=== PATIENT | female | born 1950 | race African-American/Black ===

== ENCOUNTER 2016-12-23 23:25 | Emergency (ER) | payer OTHER ==
[2016-12-23 23:43] VITALS: BMI 33.8
[2016-12-24] MEDS ORDERED: KETOROLAC TROMETHAMINE 60 MG/2 ML VIAL IM ONE (00:31)
[2016-12-24] MEDS ORDERED: CYCLOBENZAPRINE HCL 10 MG TABLET (FP) PO ONE (00:31)
--- NOTE | 2016-12-24 00:31 | PDOC ---
History of Present Illness - General Chief Complaint: Back Pain Stated Complaint: BACK PAIN Time Seen by Provider: 12/23/16 23:44 History Source: Patient - History of Present Illness Initial Comments: 12/24/16 06:54 66-year-old female presents to the emergency department complaining of lower right sided back pain 3 days. Pain is described as 6/10 dull discomfort which radiates to the right groin and down the lateral right leg to her mid lower leg intermittently. The pain is exacerbated on movement and alleviated minimally at rest. Patient states she has a history of sciatica and presenting symptoms are exactly the same. She denies any injuries, heavy lifting, headaches, nausea/ vomiting, fever/chills, chest pain, shortness of breath, abdominal pain, extremity numbness or tingling sensation. Patient states she is able to ambulate with slight pain. Past History - Past Medical History Allergies/Adverse Reactions: Allergies Allergy/AdvReac Type Severity Reaction Status Date / Time NUTS Allergy "FEELS Uncoded 12/24/16 00:34 LIKE GUMS & TONGUE SWELLING" Home Medications: Ambulatory Orders Amlodipine Besylate [Norvasc -] 5 mg PO DAILY 01/18/15 Ascorbate Calcium [Vitamin C] 1,000 mg PO DAILY 01/19/15 Duloxetine HCl [Cymbalta -] 60 mg PO DAILY 01/19/15 Metoprolol Succinate [Toprol XL -] 50 mg PO DAILY #0 tab.sr.24h 01/20/15 Cholecalciferol (Vitamin D3) [Vitamin D3] 2,000 unit PO DAILY 09/17/15 Oxycodone HCl/Acetaminophen [Percocet 5-325 mg Tablet] 1 tab PO Q6H #12 tablet MDD 4 12/24/16 Anemia: Yes (H/O "LONG AGO") Cardiac Disorders: Yes (palpitations) GI Disorders: Yes (SBO,COLON POLYPS) HTN: Yes Liver Disease: No Suicide Attempt (Hx): No - Surgical History Orthopedic Surgery: Yes (BILATERAL KNEE SCOPES) - Immunization History Immunization Up to Date: Yes - Psycho/Social/Smoking Cessation Hx Anxiety: No Suicidal Ideation: No Smoking History: Never smoked Have you smoked in the past 12 months: No Number of Cigarettes Smoked Daily: 0 Information on smoking cessation initiated: No Hx Alcohol Use: No Drug/Substance Use Hx: No Substance Use Type: Alcohol Hx Substance Use Treatment: No Review of Systems - Review of Systems Able to Perform ROS?: Yes Comments:: 12/24/16 06:55 CONSTITUTIONAL: Absent: fever, chills, diaphoresis, generalized weakness, malaise, loss of appetite HEENT: Absent: rhinorrhea, nasal congestion, throat pain, throat swelling, difficulty swallowing, mouth swelling, ear pain, eye pain, visual Changes CARDIOVASCULAR: Absent: chest pain, loss of consciousness, palpitations, irregular heart rate, peripheral edema RESPIRATORY: Absent: cough, shortness of breath, dyspnea with exertion, orthopnea, wheezing, stridor, hemoptysis GASTROINTESTINAL: Absent: abdominal pain, abdominal distension, nausea, vomiting, diarrhea, constipation, melena, hematochezia GENITOURINARY: Absent: dysuria, frequency, urgency, hesitancy, hematuria, flank pain, genital pain MUSCULOSKELETAL: Right lower back pain to right froain/down right llat leg to mid lower leg Absent: myalgia, arthralgia, joint swelling SKIN: Absent: rash, itching, pallor HEMATOLOGIC/IMMUNOLOGIC: Absent: easy bleeding, easy bruising, lymphadenopathy, frequent infections ENDOCRINE: Absent: unexplained weight gain, unexplained weight loss, heat intolerance, cold intolerance NEUROLOGIC: Absent: headache, focal weakness or paresthesias, dizziness, unsteady gait, seizure, mental status changes, bladder or bowel incontinence PSYCHIATRIC: Absent: anxiety, depression, suicidal or homicidal ideation, hallucinations. Is the patient limited Colombian proficient: No *Physical Exam - Vital Signs Last Vital Signs Temp Pulse Resp BP Pulse Ox 97.2 F L 79 20 147/69 97 12/23/16 23:39 12/23/16 23:39 12/23/16 23:39 12/23/16 23:39 12/23/16 23:52 - Physical Exam Comments: 12/24/16 06:55 GENERAL: Well developed, well nourished. Awake and alert. No acute distress. HEENT: Normocephalic, atraumatic. PERRLA, EOMI. No conjunctival pallor. Sclera are non- icteric. Moist mucous membranes. Oropharynx is clear. NECK: Supple. Full ROM. No JVD. Carotid pulses 2+ and symmetric, without bruits. No thyromegaly. No lymphadenopathy. CARDIOVASCULAR: Regular rate and rhythm. No murmurs, rubs, or gallops. Distal pulses are 2+ and symmetric. PULMONARY: No evidence of respiratory distress. Lungs clear to auscultation bilaterally. No wheezing, rales or rhonchi. ABDOMINAL: Soft. Non-tender. Non-distended. No rebound or guarding. No organomegaly. Normoactive bowel sounds. MUSCULOSKELETAL Normal range of motion at all joints. No bony deformities or tenderness. No CVA tenderness. EXTREMITIES: No cyanosis. No clubbing. No edema. No calf tenderness. SKIN: Warm and dry. Normal capillary refill. No rashes. No jaundice. NEUROLOGICAL: Alert, awake, appropriate. Cranial nerves 2-12 intact. No deficits to light touch and temperature in face, upper extremities and lower extremities. No motor deficits in the in face, upper extremities and lower extremities. Normoreflexic in the upper and lower extremities. Normal speech. Toes are down- going bilaterally. Gait is normal without ataxia. PSYCHIATRIC: Cooperative. Good eye contact. Appropriate mood and affect. Patient is able to tandem walk, stand on her toes, heels. Neg SLR ED Treatment Course - RADIOLOGY Radiograph Interpretation: 12/24/16 04:36 The lumbar vertebrae are normally aligned. No fracture or destructive bone lesion. No definite disc herniations that this would better be evaluated with MRI. Mild multilevel posterior element hypertrophy. No definite this herniations. *DC/Admit/Observation/Transfer Diagnosis at time of Disposition: Back pain Qualifiers: Back pain location: low back pain Chronicity: acute Back pain laterality: right Sciatica presence: with sciatica Sciatica laterality: sciatica of right side Qualified Code(s): M54.41 - Lumbago with sciatica, right side Sciatic nerve pain Qualifiers: Laterality: right Qualified Code(s): M54.31 - Sciatica, right side - Discharge Dispostion Disposition: HOME Condition at time of disposition: Stable Admit: No - Prescriptions Prescriptions: Oxycodone HCl/Acetaminophen [Percocet 5-325 mg Tablet] 1 tab PO Q6H #12 tablet MDD 4 - Referrals Referrals: Ledy Liao MD [Primary Care Provider] - Kg Chand MD [Staff Physician] - - Patient Instructions Printed Discharge Instructions: DI for Back Pain With Sciatica Additional Instructions: Tylenol/Motrin as needed for mild pain Percocet only as needed for severe pain Percocet contains Tylenol Follow-up with the neurologist Return back to the emergency department for severe/persistent or worsening symptoms
[2016-12-24] MEDS ORDERED: CYCLOBENZAPRINE HCL 10 MG TABLET (FP) ONE ×2 (00:38→00:39)
[2016-12-24] MEDS ORDERED: KETOROLAC TROMETHAMINE 60 MG/2 ML VIAL ONE (00:38)
[2016-12-24 01:27] LABS: URINE APPEARANCE CLEAR; URINE BILIRUBIN NEGATIVE (NEGATIVE); URINE BLOOD NEGATIVE (NEGATIVE); URINE COLOR YELLOW; URINE GLUCOSE (UA) NEGATIVE (NEGATIVE); URINE KETONE TRACE (NEGATIVE); URINE LEUK ESTERASE NEGATIVE (NEGATIVE); URINE NITRITE NEGATIVE (NEGATIVE); URINE UROBILINOGEN 4.0 E.U/dl E.U./dl (0.2-1.0)
[2016-12-24 01:28] LABS: URINE PROTEIN 1+ (NEGATIVE)
[2016-12-24 01:29] LABS: URINE MUCUS RARE; URINE RBC 4 /hpf (0-3); URINE WBC 1 /hpf (3-5)
[2016-12-24] MEDS ORDERED: OXYCODONE/APAP 5/325MG COMBO TABLET PO ONE (01:47)
[2016-12-24] MEDS ORDERED: OXYCODONE/APAP 5/325MG COMBO TABLET ONE (02:30)
[2016-12-24 05:36] VITALS: BP 140/70; PULSE 76; TEMP 97.5
== END 2016-12-24 05:13 | disposition home or self-care (01) ==
LOC: JER 23:25
PROC: 3E0233Z Introduction of Anti-inflammatory into Muscle, Percutaneous Approach (ICD-10-PCS; principal; 2016-12-23)
DX: M54.41 Lumbago with sciatica, right side (principal); I10 Essential (primary) hypertension
CPT/HCPCS: 72131-TC; 81003; 81015; 96372; 99282-25

== ENCOUNTER 2017-09-18 23:36 | Emergency (ER) | payer OTHER ==
[2017-09-19 00:29] VITALS: BMI 29.2
--- NOTE | 2017-09-19 01:09 | PDOC ---
History of Present Illness <Yvonne Meza - Last Filed: 09/19/17 03:44> - General History Source: Patient Exam Limitations: No Limitations - History of Present Illness Initial Comments: 09/19/17 02:42 Patient is a 67 year old female who presents to the ED with complaints of intense cough that began yesterday afternoon. Patient reports experiencing sudden onset of intense non productive cough that she says has increased in intensity over time. She reports experiencing intermittent chest pain secondary to coughing. Patient reports experiencing general body aches as well as sore throat and chills secondary to cough. She reports taking Mucinex, Aleve , and Claritin with no relief. Patient states having sick contacts in her and Son. Patient reports experiencing urinary incontinence secondary to coughing. Denies nausea, vomiting. Denies change in appetite, constipation, diarrhea. Denies out of state travelling. Denies any other symptoms. PMHx: laminectomy L4 and L5, cataracts, HTN, SBO,Colon Polyps, Anemia Allergies: None Social history: No smoking. Social drinker. No illicit drugs. Surgical history: Bilateral knee scopes. PMD: Dr. Ledy Hill. <Rubén Paz - Last Filed: 09/19/17 03:45> - General Chief Complaint: Cold Symptoms Stated Complaint: COUGHING Time Seen by Provider: 09/19/17 00:36 Past History - Past Medical History Anemia: Yes (H/O "LONG AGO") Cardiac Disorders: Yes (palpitations) GI Disorders: Yes (SBO,COLON POLYPS) HTN: Yes Liver Disease: No - Surgical History Orthopedic Surgery: Yes (BILATERAL KNEE SCOPES) - Immunization History Immunization Up to Date: Yes - Suicide/Smoking/Psychosocial Hx Smoking History: Never smoked Have you smoked in the past 12 months: No Number of Cigarettes Smoked Daily: 0 Information on smoking cessation initiated: No Hx Alcohol Use: No Drug/Substance Use Hx: No Substance Use Type: Alcohol Hx Substance Use Treatment: No <Yvonne Meza - Last Filed: 09/19/17 03:44> <Rubén Paz - Last Filed: 09/19/17 03:45> - Past Medical History Allergies/Adverse Reactions: Allergies Allergy/AdvReac Type Severity Reaction Status Date / Time No Known Drug Allergies Allergy Verified 09/19/17 01:29 NUTS Allergy "FEELS Uncoded 09/19/17 00:29 LIKE GUMS & TONGUE SWELLING" Home Medications: Ambulatory Orders Amlodipine Besylate [Norvasc -] 5 mg PO DAILY 01/18/15 Duloxetine HCl [Cymbalta -] 60 mg PO DAILY 01/19/15 Metoprolol Succinate [Toprol XL -] 50 mg PO DAILY #0 tab.sr.24h 01/20/15 Oseltamivir Phosphate [Tamiflu -] 75 mg PO DAILY #4 capsule 09/19/17 Review of Systems - Review of Systems Able to Perform ROS?: Yes Comments:: 09/19/17 03:45 See HPI. All other systems reviewed and unremarkable <Rubén Paz - Last Filed: 09/19/17 03:45> *Physical Exam - Vital Signs Last Vital Signs Temp Pulse Resp BP Pulse Ox 102.5 F H 94 H 18 160/80 100 09/19/17 00:27 09/19/17 00:27 09/19/17 00:27 09/19/17 00:27 09/19/17 00:27 - Physical Exam Comments: 09/19/17 03:44 NAD, looks as though she feels under the weather EOMI MMM, OP no exudate, no edema mild cervical LAD RRR, no m/r/g CTABL soft ntnd neuro grossly intact A&O x 3. <Yvonne Meza - Last Filed: 09/19/17 03:44> - Vital Signs Last Vital Signs Temp Pulse Resp BP Pulse Ox 102.5 F H 94 H 18 160/80 100 09/19/17 00:27 09/19/17 00:27 09/19/17 00:27 09/19/17 00:27 09/19/17 00:27 <Rubén Paz - Last Filed: 09/19/17 03:45> ED Treatment Course - ADDITIONAL ORDERS Additional order review: 09/19/17 01:30 Influenza Types A,B Antigen (AJ) - Final Nasopharyngeal Swab - Final - Medications Given in the ED: ED Medications Discontinued Medications Generic Name Dose Route Start Last Admin Trade Name Freq PRN Reason Stop Dose Admin Acetaminophen 975 mg 09/19/17 01:14 09/19/17 01:35 Tylenol - PO 09/19/17 01:15 975 mg ONCE ONE Administration Guaifenesin/Codeine Phosphate 10 ml 09/19/17 01:15 09/19/17 01:36 Robitussin Ac - PO 09/19/17 01:16 10 ml ONCE ONE Administration Ketorolac Tromethamine 30 mg 09/19/17 01:14 09/19/17 01:35 Toradol Injection - IM 09/19/17 01:15 30 mg ONCE ONE Administration <Rubén Paz - Last Filed: 09/19/17 03:45> Medical Decision Making - Medical Decision Making 09/19/17 02:08 [id number] presnets w/ CARM[facility]O after + sick contacts in and son with same illness. Fever, cough, headache, myalgias. - sxs control - DC. Lab called, pt Flu A + 09/19/17 03:23 Feeling a little better after symptommatic cotnrol. Started on Tamiflu. Tamiflu Rx to pharmacy. DC. <Yvonne Meza - Last Filed: 09/19/17 03:44> *DC/Admit/Observation/Transfer - Discharge Dispostion Admit: No <Yvonne Meza - Last Filed: 09/19/17 03:44> - Attestations Scribe Attestion: 09/19/17 02:42 Documentation prepared by Rubén Paz, acting as medical records library professor for Yvonne Meza MD, MD/DO. <Rubén Paz - Last Filed: 09/19/17 03:45> Diagnosis at time of Disposition: Influenza A - Discharge Dispostion Disposition: HOME Condition at time of disposition: Stable - Prescriptions Prescriptions: Oseltamivir Phosphate [Tamiflu -] 75 mg PO DAILY #4 capsule - Referrals Referrals: Ledy Liao MD [Primary Care Provider] - - Patient Instructions Additional Instructions: You have tested POSITIVE for FLU A. Treat your symptoms as they arise. Tylenol for fevers ibuprofen for aches and pains robitussin for cough claritin and nasal saline spray for sinus congestion. You may use CEPACOL throat lozenges for sore throat. CEPACOL throat spray for sore throat. Prescriptions have been sent to your designated pharmacy: Tamiflu 1 tab daily for 4days (total 5 days) Drink plenty of fluids -- soup, gatorade, water with eletrolyte powder eat your prescribed diet as possible. get plenty of rest. follow-up with your doctor this week. return to the ER for: severe difficulty breathing fainting. - Post Discharge Activity
[2017-09-19] MEDS ORDERED: KETOROLAC TROMETHAMINE 30 MG/1 ML VIAL IM ONE (01:14)
[2017-09-19] MEDS ORDERED: ACETAMINOPHEN 500 MG TABLET (FP) PO ONE (01:14)
[2017-09-19] MEDS ORDERED: guaiFENesin/CODEINE 10 ML UNIT-DOSE CUPS PO ONE (01:15)
[2017-09-19] MEDS ORDERED: OSELTAMIVIR PHOSPHATE 75 MG CAPSULE PO ONE (02:41)
[2017-09-19] MEDS ORDERED: OSELTAMIVIR PHOSPHATE 75 MG CAPSULE ONE (02:50)
[2017-09-19 04:05] VITALS: BP 131/57; PULSE 81; TEMP 100.1
[2017-09-19] MEDS ORDERED: ACETAMINOPHEN 325 MG TABLET (FP) PO ONE (04:05)
[2017-09-19] MEDS ORDERED: ACETAMINOPHEN 325 MG TABLET (FP) ONE (04:10)
== END 2017-09-19 04:40 | disposition home or self-care (01) ==
LOC: JER 23:36
PROC: 3E0233Z Introduction of Anti-inflammatory into Muscle, Percutaneous Approach (ICD-10-PCS; principal; 2017-09-18)
DX: J09.X2 Influenza due to identified novel influenza A virus with other respiratory manifestations (principal)
CPT/HCPCS: 71046-TC; 87804; 96372; 99281-25

== ENCOUNTER 2018-05-02 00:33 | Emergency (ER) | payer OTHER ==
--- NOTE | 2018-05-02 00:51 | PDOC ---
History of Present Illness - History of Present Illness Initial Comments: 05/02/18 01:29 The patient is a 68 year old female, with a significant past medical history of HTN, who presents to the emergency department with, intermittent palpitations. As per patient, her symptoms have been intermittent for the past 4 days becoming progressively more constant prompting her visit to the ED today. Today she reports 5 episodes today with heart rate of 162 bpm. She reports her palpitations to initially onset with a headache. The patient also endorses minimal chest pain. She denies recent fevers, chills, or dizziness. She denies recent nausea, vomit , diarrhea or constipation. She denies recent dysuria, frequency, urgency or hematuria. She denies recent shortness of breath. PMHx: laminectomy L4 and L5, cataracts, HTN, SBO,Colon Polyps, Anemia Allergies: Nuts Social history: No smoking. Social drinker. No illicit drugs. Surgical history: Bilateral knee scopes. PMD: Dr. Ledy Hill. <Madison Laguerre - Last Filed: 05/02/18 01:29> - General History Source: Patient Exam Limitations: No Limitations <Eunice Rose - Last Filed: 05/03/18 00:29> - General Stated Complaint: PALPATATIONS Time Seen by Provider: 05/02/18 00:42 Past History <Madison Laguerre - Last Filed: 05/02/18 01:29> - Past Medical History Anemia: Yes (H/O "LONG AGO") Cardiac Disorders: Yes (palpitations) GI Disorders: Yes (SBO,COLON POLYPS) HTN: Yes Liver Disease: No - Surgical History Orthopedic Surgery: Yes (BILATERAL KNEE SCOPES) - Immunization History Immunization Up to Date: Yes - Suicide/Smoking/Psychosocial Hx Smoking History: Never smoked Have you smoked in the past 12 months: No Number of Cigarettes Smoked Daily: 0 Information on smoking cessation initiated: No Hx Alcohol Use: No Drug/Substance Use Hx: No Substance Use Type: Alcohol Hx Substance Use Treatment: No <Eunice Rose - Last Filed: 05/03/18 00:29> - Past Medical History Allergies/Adverse Reactions: Allergies Allergy/AdvReac Type Severity Reaction Status Date / Time No Known Drug Allergies Allergy Verified 05/02/18 00:43 NUTS Allergy "FEELS Uncoded 05/02/18 00:43 LIKE GUMS & TONGUE SWELLING" Home Medications: Ambulatory Orders Amlodipine Besylate [Norvasc -] 5 mg PO DAILY 01/18/15 Duloxetine HCl [Cymbalta -] 60 mg PO DAILY 01/19/15 Metoprolol Succinate [Toprol XL -] 50 mg PO DAILY #0 tab.sr.24h 01/20/15 Oseltamivir Phosphate [Tamiflu -] 75 mg PO DAILY #4 capsule 09/19/17 Review of Systems - Review of Systems Able to Perform ROS?: Yes Comments:: 05/02/18 01:29 CONSTITUTIONAL: No fever, no chills, no fatigue EYES: No visual changes ENT: No ear pain, no sore throat CARDIOVASCULAR: Palpitations. Chest pain. RESPIRATORY: No cough, no SOB GI: No abdominal pain, no nausea, no vomiting, no constipation, no diarrhea GENITOURINARY: No dysuria, no frequency, no hematuria MUSCULOSKELETAL: No back pain, no joint pain, no myalgias SKIN: No rash NEURO: No headache All Other Systems: Reviewed and Negative <Madison Laguerre - Last Filed: 05/02/18 01:29> *Physical Exam - Vital Signs Last Vital Signs Temp Pulse Resp BP Pulse Ox 97.6 F 83 18 142/80 98 05/02/18 00:44 05/02/18 00:44 05/02/18 00:44 05/02/18 00:44 05/02/18 00:44 - Physical Exam Comments: 05/02/18 01:29 GENERAL: The patient is in no acute distress. HEAD: Normal with no signs of trauma. EYES: PERRLA, EOMI, sclera anicteric, conjunctiva clear. ENT: Ears normal, nares patent, oropharynx clear without exudates. Moist mucous membranes. NECK: Normal range of motion, supple without lymphadenopathy, JVD, or masses. LUNGS: Breath sounds equal, clear to auscultation bilaterally. No wheezes, and no crackles. HEART:Regular rate and rhythm, normal S1 and S2 without murmur, rub or gallop. ABDOMEN: Soft, nontender, normoactive bowel sounds. No guarding, no rebound. No masses palpable. EXTREMITIES: Normal range of motion, no edema. No clubbing or cyanosis. No erythema, or tenderness. NEUROLOGICAL: Cranial nerves II through XII grossly intact. Normal speech. No focal neurological deficits. MUSCULOSKELETAL: Back non-tender to palpation, no CVA tenderness SKIN: Warm, Dry, normal turgor, no rashes or lesions noted. <Madison Laguerre - Last Filed: 05/02/18 01:29> - Vital Signs Last Vital Signs Temp Pulse Resp BP Pulse Ox 97.6 F 83 18 142/80 98 05/02/18 00:44 05/02/18 00:44 05/02/18 00:44 05/02/18 00:44 05/02/18 00:44 <Eunice Rose - Last Filed: 05/03/18 00:29> ED Treatment Course - LABORATORY CBC & Chemistry Diagram: 05/02/18 01:16 05/02/18 01:16 <Madison Laguerre - Last Filed: 05/02/18 01:29> - LABORATORY CBC & Chemistry Diagram: 05/02/18 01:16 05/02/18 01:16 <Eunice Rose - Last Filed: 05/03/18 00:29> Medical Decision Making - Medical Decision Making Miss Guzman presents emergency department with a complaint of palpitations. Her symptoms have been intermittent, lasting minutes and then self resolving. She notes no exacerbating or alleviating factors. She came in tonight because she had multiple episodes of palpitations this evening. Heart rate this evening went up to 162 bpm. She states when her heart rate is elevated she has some chest discomfort No shortness of breath. She denies exertional symptoms, is able to carry out her normal activities at her baseline, no limitations in walking up hills or stairs. Patient denies recent travel, lower extremity edema. No known thyroid disorder. Differential diagnosis includes but is not limited to: ACS, arrhythmia, hyperthyroidism, PE, electrolyte abnormality Will do: Basic labs, EKG, cardiac monitoring Will reassess 05/02/18 03:02 Laboratory Tests 05/02/18 05/02/18 01:16 01:16 WBC 6.7 Hgb 12.7 Hct 38.3 Plt Count 256 D Neutrophils % 39.5 L Lymphocytes % 46.8 H D Sodium 146 H Potassium 3.7 Chloride 111 H Carbon Dioxide 28 BUN 13 Creatinine 0.8 Random Glucose 87 Creatine Kinase 109 Troponin I < 0.02 TSH 0.84 Laboratory Tests 05/02/18 01:16 D-Dimer 348 EKG: NSR rate of 71 bpm, axis nml, intervals nml, no st elevation or depression Pt is not interested in staying in the hospital She would like to leave now because she has an interview scheduled at 11am today We had a long conversation about the things that could possibly be causing her symptoms and my concern for missed arrhythmia I would like to hold her for repeat troponin and conversation with her PMD for follow up Pt can not stay in the ER She will contact the office for follow up Clinical Impression: palpitations, initial presentation 05/02/18 03:06 <Eunice Rose - Last Filed: 05/03/18 00:29> *DC/Admit/Observation/Transfer - Attestations Scribe Attestion: 05/02/18 01:30 Documentation prepared by Madison Laguerre, acting as medical hospital sales for Eunice oRse MD. <Madison Laguerre - Last Filed: 05/02/18 01:29> - Discharge Dispostion Decision to Admit order: No <Eunice Rose - Last Filed: 05/03/18 00:29> Diagnosis at time of Disposition: Palpitations - Discharge Dispostion Disposition: HOME Condition at time of disposition: Stable - Referrals Referrals: Ledy Liao MD [Primary Care Provider] - - Patient Instructions Printed Discharge Instructions: DI for Arrhythmias, DI for Palpitations Additional Instructions: Thomas Thank you for coming in to the ER today Please be sure to follow up with your primary care physician, call in the morning Return to the ER for any other concerns or complaint - Post Discharge Activity
[2018-05-02 01:17] VITALS: BP 142/80; PULSE 83; TEMP 97.6; BMI 29.2
[2018-05-02 01:27] LABS: BASO % 1.5 % (0-2.0); EOS % 4.3 % (0-4.5); HEMATOCRIT 38.3 % (32.4-45.2); HEMOGLOBIN 12.7 GM/dL (10.7-15.3); LYMPH % 46.8 % (8-40); MCH 31.2 pg (25.7-33.7); MCHC 33.2 g/dl (32.0-36.0); MEAN CELL VOLUME 93.9 fl (80-96); MEAN PLT VOLUME 8.2 fl (7.5-11.1); MONO % 7.9 % (3.8-10.2); NEUT % 39.5 % (42.8-82.8); PLATELET COUNT 256 K/MM3 (134-434); RBC 4.08 M/mm3 (3.60-5.2); RDW 14.3 % (11.6-15.6); WHITE BLOOD COUNT 6.7 K/mm3 (4.0-10.0)
[2018-05-02 01:48] LABS: ALBUMIN 3.5 g/dl (3.4-5.0); ANION GAP 7 MMOL/L (8-16); BILIRUBIN,TOTAL 0.2 mg/dL (0.2-1.0); BLOOD UREA NITROGEN 13 mg/dL (7-18); CHLORIDE 111 mmol/L (98-107); CO2 28 mmol/L (21-32); CREATININE 0.8 mg/dL (0.55-1.02); GLUCOSE,RANDOM 87 mg/dL (74-106); POTASSIUM 3.7 mmol/L (3.5-5.1); SGOT/AST 16 U/L (15-37); SGPT/ALT 26 U/L (12-78); SODIUM 146 mmol/L (136-145); TOT PROT 6.9 g/dl (6.4-8.2)
[2018-05-02 01:57] LABS: ALK PHOS 71 U/L (45-117)
--- NOTE | 2018-05-02 11:48 | EKG ---
Test Reason : Blood Pressure : / mmHG Vent. Rate : 071 BPM Atrial Rate : 071 BPM P-R Int : 180 ms QRS Dur : 090 ms QT Int : 394 ms P-R-T Axes : 041 078 024 degrees QTc Int : 428 ms NORMAL SINUS RHYTHM NORMAL ECG WHEN COMPARED WITH ECG OF 20-JUL-2016 01:45, NO SIGNIFICANT CHANGE WAS FOUND Confirmed by GUS LANDA MD ([id number]) on 05/02/2018 11:48:03 AM Referred By: Confirmed By:GUS LANDA MD
== END 2018-05-02 04:00 | disposition home or self-care (01) ==
LOC: JER 00:33
DX: R00.2 Palpitations (principal); I10 Essential (primary) hypertension
CPT/HCPCS: 36415; 71045-TC-FY; 80053; 82550; 84443; 84484; 85025; 85379; 93005; 93010; 99282-25

== ENCOUNTER 2018-06-07 21:24 | Emergency (ER) | payer OTHER ==
[2018-06-07 21:36] VITALS: BP 143/68; PULSE 70; TEMP 98; BMI 29.2
--- NOTE | 2018-06-07 21:38 | PDOC ---
Rapid Medical Evaluation Time Seen by Provider: 06/07/18 21:35 Medical Evaluation: Allergies Allergy/AdvReac Type Severity Reaction Status Date / Time No Known Drug Allergies Allergy Verified 05/02/18 00:43 NUTS Allergy "FEELS Uncoded 05/02/18 00:43 LIKE GUMS & TONGUE SWELLING" 06/07/18 21:35 Pt presents with R hip pain radiating down the R leg. Also with R sided back pain radiating to the L. Hx of sciatica. Denies saddle anesthesia and bladder/ bowel incontinence. Exam: Walking with limp. no gross neuro deficits Orders: Nothing Pt to proceed to ED for further evaluation Discharge Disposition - Diagnosis Back pain - Referrals - Patient Instructions - Post Discharge Activity
[2018-06-08] MEDS ORDERED: KETOROLAC TROMETHAMINE 60 MG/2 ML VIAL IM ONE (02:21)
--- NOTE | 2018-06-08 02:23 | PDOC ---
History of Present Illness - General Chief Complaint: Pain Stated Complaint: RIGHT LEG PAIN Time Seen by Provider: 06/07/18 21:35 - History of Present Illness Initial Comments: 06/08/18 02:22 CHIEF COMPLAINT: low back pain HISTORY OF PRESENT ILLNESS: 68 yo F with hx of laminectomy at L4/L5, HTN, SBO, and anemia presents to ED with R sided back pain radiating to leg. Patient states she has had this pain before and it is about the same as her usual flare- ups. No recent travel or sick contacts. PAST MEDICAL HISTORY: laminectomy L4 and L5, cataracts, HTN, SBO,Colon Polyps, Anemia FAMILY HISTORY: Denies SOCIAL HISTORY: Denies tobacco, alcohol, illicit drug use. SURGICAL HISTORY: Denies ALLERGIES: nuts REVIEW OF SYSTEMS General/Constitutional: Denies fever or chills. Denies weakness, weight change. HEENT: Denies change in vision. Denies ear pain or discharge. Denies sore throat. Cardiovascular: Denies chest pain or shortness of breath. Respiratory: Denies cough, wheezing, or hemoptysis. Gastrointestinal: Denies nausea, vomiting, diarrhea or constipation. Denies rectal bleeding. Genitourinary: Denies dysuria, frequency, or change in urination. Musculoskeletal: R lower back pain radiating to R leg. Denies joint or muscle swelling or pain. Denies neck or back pain. Skin and breasts: Denies rash or easy bruising. Neurologic: Denies headache, vertigo, loss of consciousness, or loss of sensation. PHYSICAL EXAM General Appearance: Well-appearing, appropriately dressed. No apparent distress , no intoxication. HEENT: EOMI, PERRLA, normal ENT inspection, normal voice, TMs normal, pharynx normal. No conjunctival pallor. No photophobia, scleral icterus. Neck: Supple. Trachea midline. No tenderness, rigidity, carotid bruit, stridor , lymphadenopathy, or thyromegaly. Respiratory/Chest: Lungs CTAB. No shortness of breath, chest tenderness, respiratory distress, accessory muscle use. No crackles, rales, rhonchi, stridor , wheezing, dullness Cardiovascular: RRR. S1, S2. No JVD, murmur, bradycardia, tachycardia. Vascular Pulses: Dorsalis-Pedis (R): 2+, Dorsalis-Pedis (L): 2+ Gastrointestinal/Abdominal: Normal bowel sounds. Abdomen soft, non-distended. No tenderness or rebound tenderness. No organomegaly, pulsatile mass, guarding , hernia, hepatomegaly, splenomegaly. Musculoskeletal/Extremities: +straight leg test to R leg. TTP to R paravertebral muscles at L3-L5. Normal inspection. FROM of all extremities, normal capillary refill. Pelvis Stable. No CVA tenderness. No tenderness to extremities, pedal edema, swelling, erythema or deformity. Integumentary: Appropriate color, dry, warm. 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 Fully oriented, alert. Appropriate mood/affect. Motor strength 5/5. No appreciable EOM palsy, facial droop or sensory deficit. Past History - Past Medical History Allergies/Adverse Reactions: Allergies Allergy/AdvReac Type Severity Reaction Status Date / Time No Known Drug Allergies Allergy Verified 06/07/18 21:36 NUTS Allergy "FEELS Uncoded 06/07/18 21:36 LIKE GUMS & TONGUE SWELLING" Home Medications: Ambulatory Orders Amlodipine Besylate [Norvasc -] 5 mg PO DAILY 01/18/15 Duloxetine HCl [Cymbalta -] 60 mg PO DAILY 01/19/15 Metoprolol Succinate [Toprol XL -] 50 mg PO DAILY #0 tab.sr.24h 01/20/15 Diazepam [Valium] 5 mg PO HS #10 tablet MDD 1 06/08/18 Diclofenac Sodium 50 mg PO BID #20 tablet. 06/08/18 Anemia: Yes (H/O "LONG AGO") Cardiac Disorders: Yes (palpitations) COPD: No GI Disorders: Yes (SBO,COLON POLYPS) HTN: Yes Liver Disease: No - Surgical History Orthopedic Surgery: Yes (BILATERAL KNEE SCOPES) - Immunization History Immunization Up to Date: Yes - Suicide/Smoking/Psychosocial Hx Smoking History: Never smoked Have you smoked in the past 12 months: No Number of Cigarettes Smoked Daily: 0 Hx Alcohol Use: No Drug/Substance Use Hx: No Substance Use Type: Alcohol Hx Substance Use Treatment: No *Physical Exam - Vital Signs Last Vital Signs Temp Pulse Resp BP Pulse Ox 98 F 70 18 143/68 100 06/07/18 21:32 06/07/18 21:32 06/07/18 21:32 06/07/18 21:32 06/07/18 21:32 Medical Decision Making - Medical Decision Making 06/08/18 02:26 68 yo F with hx of laminectomy at L4/L5, HTN, SBO, and anemia presents to ED with R sided back pain radiating to leg. -Toradol IM -Valium po 06/08/18 03:41 Patient reevaluated, at this time she states the pain is better and she is ready to go home. Advised patient to take medication as prescribed and follow up with orthopedics within the next week. Advised patient of signs and symptoms for return to ED. Patient verbalized understanding and agrees to plan. *DC/Admit/Observation/Transfer Diagnosis at time of Disposition: Back pain, Sciatic nerve pain - Discharge Dispostion Disposition: HOME Condition at time of disposition: Stable Decision to Admit order: No - Prescriptions Prescriptions: Diazepam [Valium] 5 mg PO HS #10 tablet MDD 1 Diclofenac Sodium 50 mg PO BID #20 tablet.dr - Referrals Referrals: Ledy Liao MD [Primary Care Provider] - Kg Duncan MD [Staff Physician] - - Patient Instructions Printed Discharge Instructions: DI for Back Pain With Sciatica Additional Instructions: Please take medications as prescribed; do NOT drive, drink alcohol, or operate machinery while taking Valium. Please follow up with orthopedics within the next week for further evaluation of your back pain. If you develop any loss of bowel or bladder function, loss of sensation to your legs, or are unable to walk, please return to the ER immediately. - Post Discharge Activity Forms/Work/School Notes: Back to Work
[2018-06-08] MEDS ORDERED: KETOROLAC TROMETHAMINE 60 MG/2 ML VIAL ONE (02:30)
[2018-06-08] MEDS ORDERED: diazePAM 5 MG TABLET PO ONE (02:35)
[2018-06-08] MEDS ORDERED: diazePAM 5 MG TABLET ONE (02:44)
== END 2018-06-08 03:59 | disposition home or self-care (01) ==
LOC: JER 21:24
PROC: 3E0233Z Introduction of Anti-inflammatory into Muscle, Percutaneous Approach (ICD-10-PCS; principal; 2018-06-07)
DX: M54.41 Lumbago with sciatica, right side (principal); I10 Essential (primary) hypertension; Z86.2 Personal history of diseases of the blood and blood-forming organs and certain disorders involving the immune mechanism; Z87.19 Personal history of other diseases of the digestive system
CPT/HCPCS: 99282-25

== ENCOUNTER 2018-06-19 08:23 | Day surgery (SDC) | payer OTHER ==
[2018-06-18 09:21] VITALS: BMI 29.9
[2018-06-19 10:08] VITALS: TEMP 97.6
[2018-06-19 12:04] VITALS: BP 148/85; PULSE 63
--- NOTE | 2018-06-21 17:21 | PATH ---
Surgical Pathology Report Patient Name: ISHA THAKKAR [facility]. Rec. #: [id number] /Age/Gender: 1950 (Age: 68) / F Account: [id number] Location: U-ENDOSCOPY Taken: 06/19/2018 Received: 06/19/2018 Reported: 06/21/2018 Physicians: Neel Ocampo D.O. Specimen(s) Received A: POLYP SIGMOID B: POLYP RECTO SIGMOID Clinical History Occult blood in stool, history of colon polyp Postoperative diagnosis: Polyps, hemorrhoids Final Diagnosis A. SIGMOID COLON, POLYPS, BIOPSY: HYPERPLASTIC POLYP(S). B. RECTOSIGMOID COLON, POLYP, BIOPSY: HYPERPLASTIC POLYP. Electronically Signed Wendy Shepherd M.D. Gross Description A. Received in formalin, labeled "biopsy sigmoid polyps" are 4 healy, irregular portions of soft tissue ranging from 0.2-0.4 cm. in greatest dimension. The specimens are submitted in toto in one cassette. B. Received in formalin, labeled "biopsy rectosigmoid polyp" is a healy, irregular portion of soft tissue measuring 0.3 cm. in greatest dimension. The specimen is submitted in toto in one cassette. [id number]
== END 2018-06-19 11:20 | disposition home or self-care (01) ==
LOC: JASU-ENDO 08:23
PROVIDERS: ATTEND Internal Medicine Gastroenterology
PROC: 0DBN8ZX Excision of Sigmoid Colon, Via Natural or Artificial Opening Endoscopic, Diagnostic (ICD-10-PCS; principal; 2018-06-19 13:00)
DX: K92.1 Melena (principal); D12.7 Benign neoplasm of rectosigmoid junction; K64.8 Other hemorrhoids

== ENCOUNTER 2018-09-25 19:51 | Observation (INO) | payer OTHER ==
[2018-09-25] MEDS ORDERED: ASPIRIN 325 MG TABLET PO ONE (20:04)
--- NOTE | 2018-09-25 20:05 | PDOC ---
Rapid Medical Evaluation Time Seen by Provider: 09/25/18 20:02 Medical Evaluation: Allergies Allergy/AdvReac Type Severity Reaction Status Date / Time No Known Drug Allergies Allergy Verified 06/07/18 21:36 NUTS Allergy "FEELS Uncoded 06/07/18 21:36 LIKE GUMS & TONGUE SWELLING" 09/25/18 20:02 Pt presents to the ED for chest pressure over the past few days. States that she feels an elephant sitting on her chest Exam: NAD, RRR, S1,S2 present. No murmur Orders: Labs, EKG, Cardiac Monitoring,IV Pt to proceed to ED for further evaluation Discharge Disposition - Diagnosis Chest pain - Referrals - Patient Instructions - Post Discharge Activity
[2018-09-25] MEDS ORDERED: ASPIRIN 325 MG TABLET ONE (20:50)
[2018-09-25 21:24] LABS: BASO % 1.2 % (0-2.0); EOS % 4.9 % (0-4.5); HEMATOCRIT 39.8 % (32.4-45.2); HEMOGLOBIN 13.7 GM/dL (10.7-15.3); LYMPH % 41.9 % (8-40); MCH 32.9 pg (25.7-33.7); MCHC 34.5 g/dl (32.0-36.0); MEAN CELL VOLUME 95.3 fl (80-96); MEAN PLT VOLUME 10.4 fl (7.5-11.1); MONO % 10.3 % (3.8-10.2); NEUT % 41.7 % (42.8-82.8); PLATELET COUNT 250 K/MM3 (134-434); RBC 4.18 M/mm3 (3.60-5.2); RDW 14.9 % (11.6-15.6); WHITE BLOOD COUNT 7.3 K/mm3 (4.0-10.0)
[2018-09-25 21:26] LABS: URINE APPEARANCE CLEAR; URINE BILIRUBIN NEGATIVE (<2.0 mg/dL); URINE COLOR YELLOW; URINE GLUCOSE (UA) NEGATIVE (NEGATIVE); URINE KETONE NEGATIVE (NEGATIVE); URINE LEUK ESTERASE NEGATIVE (NEGATIVE); URINE NITRITE NEGATIVE (NEGATIVE); URINE PROTEIN NEGATIVE (NEGATIVE); URINE UROBILINOGEN 4.0 E.U/dl mg/dL (0.2-1.0)
[2018-09-25 21:36] LABS: INR 0.89 (0.83-1.09); PROTHROMBIN TIME (PATIENT) 10.5 SEC (9.7-13.0)
--- NOTE | 2018-09-25 22:38 | PDOC ---
History of Present Illness - General History Source: Patient Exam Limitations: No Limitations - History of Present Illness Initial Comments: 09/25/18 23:15 The patient is a 68 year old female, with a significant past medical history of cataracts, HTN, SBO,Colon Polyps, Anemia, who presents to the emergency department with, a couple of days of intermittent chest pain and palpitations. She notes her symptoms normally onset initially while at rest with palpitations occasionally and with associated headache and worsens with movement. She denies recent fevers, chills, or dizziness. She denies recent nausea, vomit , diarrhea or constipation. She denies recent dysuria, frequency, urgency or hematuria. Allergies: Nuts Past surgical history:Bilateral knee scopes. laminectomy L4 and L5. Social history: No smoking. Social drinker. No illicit drugs. Primary Care Physician: Dr. Ledy Hill. <Madison Laguerre - Last Filed: 09/26/18 02:15> <Lissy Joyce - Last Filed: 09/26/18 02:43> - General Chief Complaint: Chest Pain Stated Complaint: CHESTPAIN Time Seen by Provider: 09/25/18 20:02 Past History <Madison Laguerre - Last Filed: 09/26/18 02:15> - Past Medical History Anemia: Yes (H/O "LONG AGO") Cardiac Disorders: Yes (TACHYCARDIA) COPD: No GI Disorders: Yes (SBO,COLON POLYPS) HTN: Yes Liver Disease: No - Surgical History Orthopedic Surgery: Yes (BILATERAL KNEE SURGERY,RIGHT ROTATOR CUFF REPAIR) - Immunization History Immunization Up to Date: Yes - Suicide/Smoking/Psychosocial Hx Smoking History: Never smoked Have you smoked in the past 12 months: No Number of Cigarettes Smoked Daily: 0 Hx Alcohol Use: Yes (social) Drug/Substance Use Hx: No Substance Use Type: Alcohol Hx Substance Use Treatment: No <Lissy Joyce - Last Filed: 09/26/18 02:43> - Past Medical History Allergies/Adverse Reactions: Allergies Allergy/AdvReac Type Severity Reaction Status Date / Time No Known Drug Allergies Allergy Verified 06/07/18 21:36 NUTS Allergy "FEELS Uncoded 06/07/18 21:36 LIKE GUMS & TONGUE SWELLING" Home Medications: Ambulatory Orders Amlodipine Besylate [Norvasc -] 5 mg PO DAILY 01/18/15 Duloxetine HCl [Cymbalta -] 60 mg PO DAILY 01/19/15 Metoprolol Succinate [Toprol XL -] 50 mg PO DAILY #0 tab.sr.24h 01/20/15 Ascorbic Acid [Vitamin C -] 1,000 mg PO DAILY 06/18/18 Cholecalciferol (Vitamin D3) [Vitamin D3] 2,000 unit PO DAILY 06/18/18 Estradiol 1 mg PO DAILY 06/18/18 Multivitamin with Iron [Multivitamins with Iron] 1 each PO DAILY 06/18/18 Review of Systems - Review of Systems Able to Perform ROS?: Yes Comments:: 09/25/18 23:15 GENERAL/CONSTITUTIONAL: No fever or chills. No weakness. HEAD, EYES, EARS, NOSE AND THROAT: No change in vision. No ear pain or discharge. No sore throat. GASTROINTESTINAL: No nausea, vomiting, diarrhea or constipation. GENITOURINARY: No dysuria, frequency, or change in urination. +CARDIOVASCULAR: Chest pain. Palpitations. No shortness of breath. RESPIRATORY: No cough, wheezing, or hemoptysis. MUSCULOSKELETAL: No joint or muscle swelling or pain. No neck or back pain. SKIN: No rash +NEUROLOGIC: Headache. No vertigo, loss of consciousness, or change in strength/ sensation. ENDOCRINE: No increased thirst. No abnormal weight change. HEMATOLOGIC/LYMPHATIC: No anemia, easy bleeding, or history of blood clots. ALLERGIC/IMMUNOLOGIC: No hives or skin allergy. All Other Systems: Reviewed and Negative <Madison Laguerre - Last Filed: 09/26/18 02:15> *Physical Exam - Vital Signs Last Vital Signs Temp Pulse Resp BP Pulse Ox 97.8 F 64 20 159/57 L 96 09/25/18 20:04 09/25/18 20:04 09/25/18 20:04 09/25/18 20:04 09/25/18 20:04 - Physical Exam Comments: 09/25/18 23:16 GENERAL: Awake, in no acute distress HEAD: No signs of trauma EYES: PERRLA, EOMI, sclera anicteric, conjunctiva clear, visual acuity grossly intact ENT: Moist mucosa NECK: Normal ROM, supple, no lymphadenopathy or JVD. LUNGS: Breath sounds equal, clear to auscultation bilaterally. No wheezes, and no crackles. Normal work of breathing. HEART: Regular rate and rhythm, normal S1 and S2, no murmurs, rubs or gallops ABDOMEN: Soft, nontender, normoactive bowel sounds. No guarding. Non- distended. : CHEST WALL: BACK: No midline tenderness. EXTREMITIES: Normal range of motion, no edema. No clubbing or cyanosis. No erythema, or tenderness NEUROLOGICAL: Alert, and fully oriented x4, Cranial nerves II through XII grossly intact. Normal speech, normal gait. DTRs 2/4 bilaterally. SKIN: Warm, Dry, normal turgor, no rashes or lesions noted. <Madison Laguerre - Last Filed: 09/26/18 02:15> - Vital Signs Last Vital Signs Temp Pulse Resp BP Pulse Ox 97.8 F 64 20 159/57 L 96 09/25/18 20:04 09/25/18 20:04 09/25/18 20:04 09/25/18 20:04 09/25/18 20:04 <Lissy Joyce - Last Filed: 09/26/18 02:43> Moderate Sedation - Procedure Monitoring Vital Signs: Procedure Monitoring Vital Signs Temperature 97.8 F 09/25/18 20:04 Pulse Rate 64 09/25/18 20:04 Respiratory Rate 20 09/25/18 20:04 Blood Pressure 159/57 L 09/25/18 20:04 O2 Sat by Pulse Oximetry (%) 96 09/25/18 20:04 <Madison Laguerre - Last Filed: 09/26/18 02:15> - Procedure Monitoring Vital Signs: Procedure Monitoring Vital Signs Temperature 97.8 F 09/25/18 20:04 Pulse Rate 64 09/25/18 20:04 Respiratory Rate 20 09/25/18 20:04 Blood Pressure 159/57 L 09/25/18 20:04 O2 Sat by Pulse Oximetry (%) 96 09/25/18 20:04 <Lissy Joyce - Last Filed: 09/26/18 02:43> Heart Score/ECG Review - History History: Moderately suspicious - Age Age: >/= 65 - Risk Factors Risk Factors Heart Score: Yes Hx Hypercholesterolemia, Yes Hx Hypertension, Yes Hx Obesity - ECG Intrepretation Rhythm: Regular Rhythm - [place] Comment: 09/26/18 01:40 Q waves present in leads V1 and V2 are unchanged from previous <Lissy Joyce Jane - Last Filed: 09/26/18 02:43> ED Treatment Course - LABORATORY CBC & Chemistry Diagram: 09/25/18 20:58 09/26/18 00:29 - ADDITIONAL ORDERS Additional order review: Laboratory Results 09/25/18 09/25/18 09/25/18 21:00 20:58 20:58 PT with INR 10.50 INR 0.89 Sodium Cancelled Potassium Cancelled Chloride Cancelled Carbon Dioxide Cancelled Anion Gap Cancelled BUN Cancelled Creatinine Cancelled Creat Clearance w eGFR Cancelled Random Glucose Cancelled Calcium Cancelled Magnesium Cancelled Total Bilirubin Cancelled AST Cancelled ALT Cancelled Alkaline Phosphatase Cancelled Creatine Kinase Cancelled Troponin I Cancelled Total Protein Cancelled Albumin Cancelled Urine Color Yellow Urine Appearance Clear Urine pH 6.0 Ur Specific [place] 1.019 Urine Protein Negative Urine Glucose (UA) Negative Urine Ketones Negative Urine Blood Negative Urine Nitrite Negative Urine Bilirubin Negative Urine Urobilinogen 4.0 e.u/dl H Ur Leukocyte Esterase Negative 09/25/18 20:58 RBC 4.18 MCV 95.3 MCHC 34.5 RDW 14.9 MPV 10.4 D Neutrophils % 41.7 L Lymphocytes % 41.9 H Monocytes % 10.3 H Eosinophils % 4.9 H Basophils % 1.2 - Medications Given in the ED: ED Medications Discontinued Medications Generic Name Dose Route Start Last Admin Trade Name Wilfredoq PRN Reason Stop Dose Admin Aspirin 325 mg 09/25/18 20:04 09/25/18 20:52 Asa - PO 09/25/18 20:05 325 mg ONCE ONE Administration <Madison Laguerre - Last Filed: 09/26/18 02:15> - LABORATORY CBC & Chemistry Diagram: 09/25/18 20:58 09/26/18 00:29 - ADDITIONAL ORDERS Additional order review: Laboratory Results 09/25/18 09/25/18 09/25/18 21:00 20:58 20:58 PT with INR 10.50 INR 0.89 Sodium Cancelled Potassium Cancelled Chloride Cancelled Carbon Dioxide Cancelled Anion Gap Cancelled BUN Cancelled Creatinine Cancelled Creat Clearance w eGFR Cancelled Random Glucose Cancelled Calcium Cancelled Magnesium Cancelled Total Bilirubin Cancelled AST Cancelled ALT Cancelled Alkaline Phosphatase Cancelled Creatine Kinase Cancelled Troponin I Cancelled Total Protein Cancelled Albumin Cancelled Urine Color Yellow Urine Appearance Clear Urine pH 6.0 Ur Specific [place] 1.019 Urine Protein Negative Urine Glucose (UA) Negative Urine Ketones Negative Urine Blood Negative Urine Nitrite Negative Urine Bilirubin Negative Urine Urobilinogen 4.0 e.u/dl H Ur Leukocyte Esterase Negative 09/25/18 20:58 RBC 4.18 MCV 95.3 MCHC 34.5 RDW 14.9 MPV 10.4 D Neutrophils % 41.7 L Lymphocytes % 41.9 H Monocytes % 10.3 H Eosinophils % 4.9 H Basophils % 1.2 - Medications Given in the ED: ED Medications Discontinued Medications Generic Name Dose Route Start Last Admin Trade Name Freq PRN Reason Stop Dose Admin Aspirin 325 mg 09/25/18 20:04 09/25/18 20:52 Asa - PO 09/25/18 20:05 325 mg ONCE ONE Administration <Lissy Joyce - Last Filed: 09/26/18 02:43> Medical Decision Making - Medical Decision Making 09/26/18 01:[address] Liao's answering service, made aware Dr. Cross is lamination builder; awaiting call back. 02:15 Second call placed to Dr. Cross's office, case was discussed. <Madison Laguerre - Last Filed: 09/26/18 02:15> - Medical Decision Making 09/26/18 01:40 68-year-old female with intermittent chest pain 2 days now worsening Patient states the pain is present both at rest and with movement Chest x-ray shows no acute infiltrate There is no significant change from previous dated April 2018 Initial troponin is within normal limits Patient's heart score is 4 Due to persistent pain that is not reproducible a call has been placed a primary care physician for recommendation of observation admission and serial enzymes <Lissy Joyce - Last Filed: 09/26/18 02:43> *DC/Admit/Observation/Transfer - Attestations Scribe Attestion: 09/25/18 23:16 Documentation prepared by Madison Laguerre, acting as medical reception for Lissy Joyce DO. <Madison Laguerre - Last Filed: 09/26/18 02:15> - Discharge Dispostion Decision to Admit order: Yes - Attestations Physician Attestion: 09/26/18 02:42 I, Dr Lissy Joyce, attest that this document has been prepared under my direction and personally reviewed by me in its entirety. I further attest, that it accurately reflects all work, procedures and medical decision making performed by me. <Lissy Joyce - Last Filed: 09/26/18 02:43> Diagnosis at time of Disposition: Chest pain - Discharge Dispostion Condition at time of disposition: Stable - Referrals Referrals: Ledy Liao MD [Primary Care Provider] - - Patient Instructions - Post Discharge Activity
[2018-09-26 00:04] LABS: MAGNESIUM 2.2 mg/dL (1.8-2.4); PHOSPHOROUS 3.9 mg/dL (2.5-4.9)
[2018-09-26 01:03] LABS: ALBUMIN 3.4 g/dl (3.4-5.0); ALK PHOS 78 U/L (45-117); ANION GAP 6 MMOL/L (8-16); BILIRUBIN,TOTAL 0.4 mg/dL (0.2-1); BLOOD UREA NITROGEN 10 mg/dL (7-18); CALCIUM 8.3 mg/dL (8.5-10.1); CHLORIDE 105 mmol/L (98-107); CO2 31 mmol/L (21-32); CREATININE 0.7 mg/dL (0.55-1.3); GLUCOSE,RANDOM 152 mg/dL (74-106); SGOT/AST 16 U/L (15-37); SGPT/ALT 25 U/L (13-61); SODIUM 142 mmol/L (136-145); TOT PROT 6.8 g/dl (6.4-8.2)
[2018-09-26] MEDS ORDERED: POTASSIUM CHLORIDE TABS 10 MEQ TABLET.ER (FP) PO ONE (01:18)
[2018-09-26] MEDS ORDERED: POTASSIUM CHLORIDE TABS 20 MEQ TABLET.ER (FP) PO ONE (01:58)
[2018-09-26] MEDS ORDERED: NITROGLYCERIN SUBLINGUAL 1/150 0.4 MG TAB SL ONE (02:33)
[2018-09-26] MEDS ORDERED: morphine SULFATE 4 MG/ML VIAL IVPUSH PRN (02:34)
[2018-09-26] MEDS ORDERED: NITROGLYCERIN SUBLINGUAL 1/150 0.4 MG TAB ONE (02:50)
[2018-09-26] MEDS ORDERED: morphine SULFATE 4 MG/ML VIAL ONE (03:01)
--- NOTE | 2018-09-26 09:34 | HP ---
Admitting History and Physical - Primary Care Physician PCP: Leyd Liao - Admission Chief Complaint: chest pain/arm pain History of Present Illness: several weeks of intermittent chest pain/tightness started on the left side, then moved to her right, with occasional associated right arm pain yesterday developed palpitations and more severe chest pain than usual so she came to er for evaluation History Source: Patient Limitations to Obtaining History: No Limitations - Past Medical History Cardiovascular: Yes: HTN Reproductive: Yes: Other (left ovarian cyst) - Past Surgical History Past Surgical History: Yes: Arthrosocopy (bilteral knees 2003, 2004 left rotator cuff repair 2004), Breast Biopsy (left breast intraductal papilloma 2013 ), Hysterectomy (partial 1998) Additional Past Surgical History: benign thyroid tumor removal 1986 right catarct 2016 liposuction 2016 - Smoking History Smoking history: Never smoked Have you smoked in the past 12 months: No Aproximately how many cigarettes per day: 0 - Alcohol/Substance Use Hx Alcohol Use: Yes (social) History of Substance Use: reports: None - Social History Usual Living Arrangement: Yes: With Spouse ADL: Independent History of Recent Travel: Yes ([place]) Home Medications - Allergies Allergies/Adverse Reactions: Allergies Allergy/AdvReac Type Severity Reaction Status Date / Time No Known Drug Allergies Allergy Verified 06/07/18 21:36 NUTS Allergy "FEELS Uncoded 06/07/18 21:36 LIKE GUMS & TONGUE SWELLING" - Home Medications Home Medications: Ambulatory Orders Amlodipine Besylate [Norvasc -] 5 mg PO DAILY 01/18/15 Duloxetine HCl [Cymbalta -] 60 mg PO DAILY 01/19/15 Metoprolol Succinate [Toprol XL -] 50 mg PO DAILY #0 tab.sr.24h 01/20/15 Ascorbic Acid [Vitamin C -] 1,000 mg PO DAILY 06/18/18 Cholecalciferol (Vitamin D3) [Vitamin D3] 2,000 unit PO DAILY 06/18/18 Estradiol 1 mg PO DAILY 06/18/18 Multivitamin with Iron [Multivitamins with Iron] 1 each PO DAILY 06/18/18 Family Disease History - Family Disease History Family History: Unremarkable Review of Systems - Review of Systems Constitutional: reports: No Symptoms Eyes: reports: No Symptoms HENT: reports: No Symptoms Neck: reports: No Symptoms Cardiovascular: reports: Chest Pain, Palpitations Respiratory: reports: No Symptoms Gastrointestinal: reports: No Symptoms Genitourinary: reports: No Symptoms Musculoskeletal: reports: Back Pain, Extremity Pain Psychiatric: reports: No Symptoms Physical Examination Vital Signs: Vital Signs Temperature 97.8 F 09/25/18 20:04 Pulse Rate 62 09/26/18 05:05 Respiratory Rate 20 09/26/18 05:05 Blood Pressure 143/79 09/26/18 05:05 O2 Sat by Pulse Oximetry (%) 100 09/26/18 05:05 Constitutional: Yes: Well Nourished, Calm Eyes: Yes: EOM Intact HENT: Yes: Normocephalic Neck: Yes: Trachea Midline Cardiovascular: Yes: Regular Rate and Rhythm Respiratory: Yes: CTA Bilaterally Gastrointestinal: Yes: Normal Bowel Sounds, Soft Breast(s): Yes: WNL Musculoskeletal: Yes: WNL Edema: No Peripheral Pulses WNL: Yes Neurological: Yes: WNL ...Motor Strength: WNL Psychiatric: Yes: WNL Labs: CBC, BMP 09/25/18 20:58 09/26/18 00:29 Laboratory Results - last 24 hr 09/25/18 09/25/18 09/25/18 20:58 20:58 20:58 WBC 7.3 RBC 4.18 Hgb 13.7 Hct 39.8 MCV 95.3 MCH 32.9 MCHC 34.5 RDW 14.9 Plt Count 250 MPV 10.4 D Absolute Neuts (auto) 3.0 Neutrophils % 41.7 L Lymphocytes % 41.9 H Monocytes % 10.3 H Eosinophils % 4.9 H Basophils % 1.2 Nucleated RBC % 0 PT with INR 10.50 INR 0.89 Sodium Cancelled Potassium Cancelled Chloride Cancelled Carbon Dioxide Cancelled Anion Gap Cancelled BUN Cancelled Creatinine Cancelled Creat Clearance w eGFR Cancelled Random Glucose Cancelled Calcium Cancelled Phosphorus Magnesium Cancelled Total Bilirubin Cancelled AST Cancelled ALT Cancelled Alkaline Phosphatase Cancelled Creatine Kinase Cancelled Troponin I Cancelled Total Protein Cancelled Albumin Cancelled Urine Color Urine Appearance Urine pH Ur Specific [place] Urine Protein Urine Glucose (UA) Urine Ketones Urine Blood Urine Nitrite Urine Bilirubin Urine Urobilinogen Ur Leukocyte Esterase 09/25/18 09/25/18 09/25/18 21:00 23:00 23:00 WBC RBC Hgb Hct MCV MCH MCHC RDW Plt Count MPV Absolute Neuts (auto) Neutrophils % Lymphocytes % Monocytes % Eosinophils % Basophils % Nucleated RBC % PT with INR INR Sodium Cancelled Potassium Cancelled Chloride Cancelled Carbon Dioxide Cancelled Anion Gap Cancelled BUN Cancelled Creatinine Cancelled Creat Clearance w eGFR Cancelled Random Glucose Cancelled Calcium Cancelled Phosphorus 3.9 Magnesium 2.2 Total Bilirubin Cancelled AST Cancelled ALT Cancelled Alkaline Phosphatase Cancelled Creatine Kinase Cancelled Troponin I Cancelled Total Protein Cancelled Albumin Cancelled Urine Color Yellow Urine Appearance Clear Urine pH 6.0 Ur Specific [place] 1.019 Urine Protein Negative Urine Glucose (UA) Negative Urine Ketones Negative Urine Blood Negative Urine Nitrite Negative Urine Bilirubin Negative Urine Urobilinogen 4.0 e.u/dl H Ur Leukocyte Esterase Negative 09/26/18 09/26/18 09/26/18 00:29 00:29 03:58 WBC RBC Hgb Hct MCV MCH MCHC RDW Plt Count MPV Absolute Neuts (auto) Neutrophils % Lymphocytes % Monocytes % Eosinophils % Basophils % Nucleated RBC % PT with INR INR Sodium 142 Potassium 3.0 L Chloride 105 Carbon Dioxide 31 Anion Gap 6 L BUN 10 Creatinine 0.7 Creat Clearance w eGFR > 60 Random Glucose 152 H Calcium 8.3 L Phosphorus Magnesium Total Bilirubin 0.4 AST 16 ALT 25 Alkaline Phosphatase 78 Creatine Kinase Troponin I 0.02 < 0.02 Total Protein 6.8 Albumin 3.4 Urine Color Urine Appearance Urine pH Ur Specific [place] Urine Protein Urine Glucose (UA) Urine Ketones Urine Blood Urine Nitrite Urine Bilirubin Urine Urobilinogen Ur Leukocyte Esterase Imaging - Results Chest X-ray: Report Reviewed Cat Scan: Report Reviewed (no pulmonary embolism, no other lung abnormality) Problem List - Problems (1) Hypertension Code(s): I10 - ESSENTIAL (PRIMARY) HYPERTENSION Qualifiers: Hypertension type: essential hypertension Qualified Code(s): I10 - Essential (primary) hypertension (2) Atypical chest pain Code(s): R07.89 - OTHER CHEST PAIN (3) Palpitations Code(s): R00.2 - PALPITATIONS Assessment/Plan serial cardiac enzymes echo cardiac calcification noted on cta cardiology eval-in pt vs outpt stress test pain sounds at present more like radiculopathy will get outpt mri c spine
--- NOTE | 2018-09-26 10:20 | CON.CARD ---
Consult Consult Specialty:: Cardiology - History of Present Illness History of Present Illness: The patient is a 68 year old female, with a significant past medical history of cataracts, HTN, SBO,Colon Polyps, Anemia, who presents to the emergency department with, a couple of days of intermittent chest pain and palpitations. She notes her symptoms normally onset initially while at rest with palpitations occasionally and with associated headache and worsens with movement. She denies recent fevers, chills, or dizziness. She denies recent nausea, vomit , diarrhea or constipation. She denies recent dysuria, frequency, urgency or hematuria. Allergies: Nuts Past surgical history:Bilateral knee scopes. laminectomy L4 and L5. Social history: No smoking. Social drinker. No illicit drugs. Primary Care Physician: Dr. Ledy Hill. - History Source History Provided By: Patient, Medical Record - Past Medical History Cardio/Vascular: Yes: HTN - Past Surgical History Past Surgical History: Yes: Arthrosocopy (bilteral knees 2003, 2004 left rotator cuff repair 2004), Breast Biopsy (left breast intraductal papilloma 2013 ), Hysterectomy (partial 1998) - Alcohol/Substance Use Hx Alcohol Use: Yes (social) History of Substance Use: reports: None - Smoking History Smoking history: Never smoked Have you smoked in the past 12 months: No Aproximately how many cigarettes per day: 0 - Social History ADL: Independent History of Recent Travel: Yes ([place]) Home Medications - Allergies Allergies/Adverse Reactions: Allergies Allergy/AdvReac Type Severity Reaction Status Date / Time No Known Drug Allergies Allergy Verified 06/07/18 21:36 NUTS Allergy "FEELS Uncoded 06/07/18 21:36 LIKE GUMS & TONGUE SWELLING" - Home Medications Home Medications: Ambulatory Orders Amlodipine Besylate [Norvasc -] 5 mg PO DAILY 01/18/15 Duloxetine HCl [Cymbalta -] 60 mg PO DAILY 01/19/15 Metoprolol Succinate [Toprol XL -] 50 mg PO DAILY #0 tab.sr.24h 01/20/15 Ascorbic Acid [Vitamin C -] 1,000 mg PO DAILY 06/18/18 Cholecalciferol (Vitamin D3) [Vitamin D3] 2,000 unit PO DAILY 06/18/18 Estradiol 1 mg PO DAILY 06/18/18 Multivitamin with Iron [Multivitamins with Iron] 1 each PO DAILY 06/18/18 Review of Systems - Review of Systems Constitutional: reports: No Symptoms Eyes: reports: No Symptoms HENT: reports: No Symptoms Neck: reports: No Symptoms Cardiovascular: reports: Chest Pain Respiratory: reports: No Symptoms Gastrointestinal: reports: No Symptoms Genitourinary: reports: No Symptoms Breasts: reports: No Symptoms Reported Musculoskeletal: reports: No Symptoms Integumentary: reports: No Symptoms Neurological: reports: No Symptoms Endocrine: reports: No Symptoms Hematology/Lymphatic: reports: No Symptoms Psychiatric: reports: No Symptoms Vital Signs: Vital Signs Temperature 97.8 F 09/25/18 20:04 Pulse Rate 62 09/26/18 05:05 Respiratory Rate 20 09/26/18 05:05 Blood Pressure 143/79 09/26/18 05:05 O2 Sat by Pulse Oximetry (%) 100 09/26/18 05:05 Constitutional: Yes: Well Nourished, No Distress, Calm Eyes: Yes: WNL, Conjunctiva Clear, EOM Intact HENT: Yes: WNL, Atraumatic, Normocephalic Neck: Yes: WNL, Supple, Trachea Midline Respiratory: Yes: WNL, Regular, CTA Bilaterally Gastrointestinal: Yes: WNL, Normal Bowel Sounds Renal/: Yes: WNL Cardiovascular: Yes: WNL, Regular Rate and Rhythm Musculoskeletal: Yes: WNL Extremities: Yes: WNL Integumentary: Yes: WNL Neurological: Yes: WNL, Alert, Oriented ...Motor Strength: WNL Psychiatric: Yes: WNL, Alert, Oriented - Other Data Labs, Other Data: CBC, BMP 09/25/18 20:58 09/26/18 00:29 INR, PTT INR 0.89 (0.83-1.09) 09/25/18 20:58 Troponin, BNP 09/25/18 09/25/18 09/26/18 20:58 23:00 00:29 Troponin I Cancelled Cancelled 0.02 09/26/18 03:58 Troponin I < 0.02 Troponin, BNP 09/25/18 09/25/18 09/26/18 20:58 23:00 00:29 Troponin I Cancelled Cancelled 0.02 09/26/18 03:58 Troponin I < 0.02 Imaging - Results Chest X-ray: Image Reviewed (no i/e) EKG: Image Reviewed (sr old septal mi) Problem List - Problems (1) Chest pain Code(s): R07.9 - CHEST PAIN, UNSPECIFIED (2) Hypertension Code(s): I10 - ESSENTIAL (PRIMARY) HYPERTENSION Qualifiers: Hypertension type: essential hypertension Qualified Code(s): I10 - Essential (primary) hypertension (3) Atypical chest pain Code(s): R07.89 - OTHER CHEST PAIN (4) Back pain Code(s): M54.9 - DORSALGIA, UNSPECIFIED (5) Chest discomfort Code(s): R07.89 - OTHER CHEST PAIN (6) Hip pain Code(s): M25.559 - PAIN IN UNSPECIFIED HIP (7) Influenza A Code(s): J10.1 - FLU DUE TO OTH IDENT INFLUENZA VIRUS W OTH RESP MANIFEST (8) Muscle spasm Code(s): M62.838 - OTHER MUSCLE SPASM (9) Neck muscle spasm Code(s): M62.838 - OTHER MUSCLE SPASM (10) Numbness and tingling Code(s): R20.0 - ANESTHESIA OF SKIN; R20.2 - PARESTHESIA OF SKIN (11) Palpitations Code(s): R00.2 - PALPITATIONS (12) Sciatic nerve pain Code(s): M54.30 - SCIATICA, UNSPECIFIED SIDE (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
--- NOTE | 2018-09-26 11:40 | EKG ---
Test Reason : Blood Pressure : / mmHG Vent. Rate : 064 BPM Atrial Rate : 064 BPM P-R Int : 192 ms QRS Dur : 092 ms QT Int : 424 ms P-R-T Axes : 061 075 045 degrees QTc Int : 437 ms NORMAL SINUS RHYTHM POSSIBLE LEFT ATRIAL ENLARGEMENT SEPTAL INFARCT , AGE UNDETERMINED ABNORMAL ECG WHEN COMPARED WITH ECG OF 02-MAY-2018 00:55, NO SIGNIFICANT CHANGE WAS FOUND Confirmed by CORDELL CALVO, GUS ([id number]) on 09/26/2018 11:40:11 AM Referred By: Confirmed By:GUS LANDA MD
[2018-09-26 11:59] LABS: ALBUMIN 3.4 g/dl (3.4-5.0); ALK PHOS 77 U/L (45-117); ANION GAP 6 MMOL/L (8-16); BILIRUBIN,TOTAL 0.5 mg/dL (0.2-1); BLOOD UREA NITROGEN 11 mg/dL (7-18); CALCIUM 8.5 mg/dL (8.5-10.1); CHLORIDE 107 mmol/L (98-107); CO2 28 mmol/L (21-32); CREATININE 0.6 mg/dL (0.55-1.3); GLUCOSE,RANDOM 105 mg/dL (74-106); SGOT/AST 13 U/L (15-37); SGPT/ALT 26 U/L (13-61); SODIUM 141 mmol/L (136-145); TOT PROT 6.7 g/dl (6.4-8.2)
[2018-09-26] MEDS ORDERED: DULoxetine HCL 30 MG CAPSULE.DR (FP) PO ONE (12:51)
[2018-09-26] MEDS ORDERED: amLODIPine BESYLATE 5 MG TABLET (FP) ONE (12:51)
[2018-09-26] MEDS: DULoxetine HCL 30 MG CAPSULE.DR (FP) PO SCH (13:06)
[2018-09-26] MEDS: amLODIPine BESYLATE 5 MG TABLET (FP) PO SCH (13:06)
--- NOTE | 2018-09-26 13:24 | ECHO ---
Name: ISHA THAKKAR Exam:Adult Echocardiogram Study Date: 09/26/2018 09:54 AM Age: 68 yrs Reason For Study: LVSF Height: 66 in Weight: 178 lb BSA: 1.9 m2 MMode/2D Measurements & Calculations IVSd: 1.1 cm ACS: 1.9 cm LVIDd: 3.7 cm LVIDs: 3.0 cm LVPWd: 1.6 cm EDV(Teich): 56.5 ml LVOT diam: 2.0 cm ESV(Teich): 33.9 ml Doppler Measurements & Calculations TR max myke: 262.3 cm/sec Med Peak E' Myke: 8.2 cm/sec TR max P.5 mmHg Lat Peak E' Myke: 8.2 cm/sec Procedure The study was technically difficult with many images being suboptimal in quality. The study was non-d iagnostic in quality. No definitive statements could be made about this echo due to extremely poor acoustic win dows. Left Ventricle The left ventricle is not well visualized. The left ventricle is grossly normal size. Due to the poor quality of the echocardiogram, an assessment of left ventricular ejection fraction cannot be made. Probably n ormal. Regional wall motion abnormalities cannot be excluded due to limited visualization. Right Ventricle The right ventricle is not well visualized. Atria The left atrium is not well visualized. Right atrium not well visualized. Mitral Valve The mitral valve is not well visualized. Tricuspid Valve There is mild tricuspid valve thickening. There is no tricuspid stenosis. There is mild tricuspid regurgitation. Right ventricular systolic pressure is elevated at 30-40mmHg. Aortic Valve The aortic valve is not well visualized. Pulmonic Valve The pulmonic valve is not well visualized. Great Vessels The aortic root is normal size. Pericardium/Pleura There is no pericardial effusion. Interpretation Summary Regional wall motion abnormalities cannot be excluded due to limited visualization. There is mild tricuspid regurgitation. Right ventricular systolic pressure is elevated at 30-40mmHg. The left atrium is not well visualized. Right atrium not well visualized. The left ventricle is not well visualized. The left ventricle is grossly normal size. Due to the poor quality of the echocardiogram, an assessment of left ventricular ejection fraction ca nnot be made. Probably normal. The study was non-diagnostic in quality. No definitive statements could be made about this echo due t o extremely poor acoustic windows. The study was technically difficult with many images being suboptimal in quality. MD Clint Ledbetter 09/26/2018 01:24 PM
[2018-09-26 16:32] VITALS: BMI 28.7
[2018-09-27] MEDS ORDERED: REGADENOSON 0.4 MG/5 ML PRE-FILLED SYRINGE IVPUSH ONE ×2 (08:45→10:23)
[2018-09-27 09:05] LABS: CHOLESTEROL 204 mg/dL (50-200); HDL CHOLESTEROL 58 mg/dL (40-60); TRIGLYCERIDES 87 mg/dL (0-150)
--- NOTE | 2018-09-27 09:49 | PN ---
Progress Note (short form) - Note Progress Note: Laboratory Results - last 24 hr 09/26/18 09/27/18 09/27/18 11:10 06:00 06:00 Sodium 141 Potassium 4.0 Chloride 107 Carbon Dioxide 28 Anion Gap 6 L BUN 11 Creatinine 0.6 Creat Clearance w eGFR > 60 Random Glucose 105 Calcium 8.5 Total Bilirubin 0.5 AST 13 L ALT 26 Alkaline Phosphatase 77 Creatine Kinase 81 66 Troponin I < 0.02 < 0.02 Total Protein 6.7 Albumin 3.4 Triglycerides 87 Cholesterol 204 H Total LDL Cholesterol 126 H HDL Cholesterol 58 Vital Signs Period Temp Pulse Resp BP Sys/Mena Pulse Ox Last 24 Hr 98.1 F-98.2 F 56-62 16-20 136-151/69-80 97-97 S1S2 rrr lungs cta no edema no complaints today seen on the way to stress test in am to r/o cad dc planning if result is ok Problem List - Problems (1) Hypertension Code(s): I10 - ESSENTIAL (PRIMARY) HYPERTENSION Qualifiers: Hypertension type: essential hypertension Qualified Code(s): I10 - Essential (primary) hypertension (2) Atypical chest pain Code(s): R07.89 - OTHER CHEST PAIN (3) Palpitations Code(s): R00.2 - PALPITATIONS
[2018-09-27] MEDS ORDERED: ASPIRIN COATED 81 MG TABLET.EC PO SCH (10:00)
[2018-09-27] MEDS ORDERED: PT OWN MED DRAWER 7, Y5N ONE (11:27)
--- NOTE | 2018-09-27 11:32 | PN ---
Progress Note, Physician Chief Complaint: Pt awaits stress MIBI today. She denies dyspnea or chest pain.Her sister is at bedside. History of Present Illness: Pt is a 68 yr old woman with several weeks of intermittent chest pain/tightness that started on the left side, then moved to her right, with occasional associated right arm pain Developed palpitations and more severe chest pain (the day before ER visit) than usual, so she came to er for evaluation History Source: Patient Limitations to Obtaining History: No Limitations - Past Medical History Cardiovascular: Yes: HTN Reproductive: Yes: Other (left ovarian cyst) - Past Surgical History Past Surgical History: Yes: Arthrosocopy (bilteral knees 2003, 2004 left rotator cuff repair 2004), Breast Biopsy (left breast intraductal papilloma 2013 ), Hysterectomy (partial 1998) Additional Past Surgical History: benign thyroid tumor removal 1986 right catarct 2016 liposuction 2016 - Current Medication List Current Medications: Active Medications Amlodipine Besylate (Norvasc -) 5 mg PO DAILY [facility] Last Admin: 09/26/18 13:06 Dose: 5 mg Aspirin (Ecotrin -) 81 mg PO DAILY [facility] Duloxetine HCl (Cymbalta -) 60 mg PO DAILY [facility] Last Admin: 09/26/18 13:06 Dose: 60 mg Metoprolol Succinate (Toprol Xl -) 50 mg PO DAILY [facility] Last Admin: 09/26/18 13:06 Dose: 50 mg - Objective Vital Signs: Vital Signs Temperature 98.2 F 09/27/18 02:00 Pulse Rate 59 L 09/27/18 06:00 Respiratory Rate 20 09/27/18 06:00 Blood Pressure 149/72 09/27/18 06:00 O2 Sat by Pulse Oximetry (%) 97 09/26/18 21:00 Constitutional: Yes: Well Nourished Cardiovascular: Yes: S1, S2, S4 Respiratory: Yes: WNL Gastrointestinal: Yes: WNL ...Rectal Exam: Yes: Deferred Genitourinary: No: Anuria Breast(s): Yes: WNL Musculoskeletal: Yes: WNL Extremities: Yes: WNL Edema: No Peripheral Pulses WNL: Yes Integumentary: Yes: WNL Neurological: Yes: WNL ...Motor Strength: WNL Psychiatric: Yes: WNL Labs: CBC, BMP 09/25/18 20:58 09/26/18 11:10 INR, PTT INR 0.89 (0.83-1.09) 09/25/18 20:58 Abnormal Lab Results 09/27/18 09/27/18 06:00 11:40 Hemoglobin A1c % 6.6 H Cholesterol 204 H Total LDL Cholesterol 126 H - ....Imaging EKG: Image Reviewed (No significant change from 2018 EKG (NSR; r/o septal infarct)) Problem List - Problems (1) Atypical chest pain Assessment/Plan: TNI < 0.02 x 3 Stress MIBI today: normal study. From a cardiac perspective, pt may be followed as an outpatient. Pt says she has had at least two stress tests in the past several years, in addition to today's test. A long discussion was had on modifying cardiac risk factors to reduce future adverse cardiac events. Code(s): R07.89 - OTHER CHEST PAIN (2) Hyperlipidemia Assessment/Plan: LDL cholesterol 126 mg/dL Start statin. Code(s): E78.5 - HYPERLIPIDEMIA, UNSPECIFIED (3) Hypertension Assessment/Plan: On amlodipine and metoprolol ER; f/u BP and HR serially. Code(s): I10 - ESSENTIAL (PRIMARY) HYPERTENSION Qualifiers: Hypertension type: essential hypertension Qualified Code(s): I10 - Essential (primary) hypertension
[2018-09-27 13:34] VITALS: BP 139/78; PULSE 75; TEMP 98.5
[2018-09-27] MEDS: DULoxetine HCL 30 MG CAPSULE.DR (FP) PO SCH (13:35)
[2018-09-27] MEDS: amLODIPine BESYLATE 5 MG TABLET (FP) PO SCH (13:35)
[2018-09-27] MEDS ORDERED: ATORVASTATIN CA 20 MG TABLET (FP) PO SCH (22:00)
--- NOTE | 2018-09-28 06:01 | DS ---
Physical Examination Vital Signs: Vital Signs Temperature 98.5 F 09/27/18 13:33 Pulse Rate 75 09/27/18 13:33 Respiratory Rate 20 09/27/18 13:33 Blood Pressure 139/78 09/27/18 13:33 O2 Sat by Pulse Oximetry (%) 98 09/27/18 09:00 Constitutional: Yes: No Distress, Calm Eyes: Yes: EOM Intact HENT: Yes: Normocephalic Neck: Yes: Trachea Midline Cardiovascular: Yes: Regular Rate and Rhythm Respiratory: Yes: CTA Bilaterally Gastrointestinal: Yes: Normal Bowel Sounds, Soft Edema: No Peripheral Pulses WNL: Yes Neurological: Yes: WNL Labs: CBC, BMP 09/25/18 20:58 09/26/18 11:10 Discharge Summary Reason For Visit: CHEST PAIN Hospital Course: admitted for atypical chest pain CTA was normal, no evidence of PE echo of poor quality nuclear stress test negative for ischemia, 70%ef no further pain noted, she was discharged with close outpt follow up Condition: Stable - Instructions Referrals: Ledy Liao MD [Primary Care Provider] - Disposition: HOME - Home Medications Comprehensive Discharge Medication List: Ambulatory Orders Amlodipine Besylate [Norvasc -] 5 mg PO DAILY 01/18/15 Duloxetine HCl [Cymbalta -] 60 mg PO DAILY 01/19/15 Metoprolol Succinate [Toprol XL -] 50 mg PO DAILY #0 tab.sr.24h 01/20/15 Ascorbic Acid [Vitamin C -] 1,000 mg PO DAILY 06/18/18 Cholecalciferol (Vitamin D3) [Vitamin D3] 2,000 unit PO DAILY 06/18/18 Estradiol 1 mg PO DAILY 06/18/18 Multivitamin with Iron [Multivitamins with Iron] 1 each PO DAILY 06/18/18
== END 2018-09-27 16:45 | disposition home or self-care (01) ==
LOC: JER 19:51 → JERBED 09-26 02:43 → J4W 09-26 16:37
PROVIDERS: ADMIT Internal Medicine; ATTEND Internal Medicine
PROC: 3E033NZ Introduction of Analgesics, Hypnotics, Sedatives into Peripheral Vein, Percutaneous Approach (ICD-10-PCS; principal; 2018-09-26)
PROC: 3E033GC Introduction of Other Therapeutic Substance into Peripheral Vein, Percutaneous Approach (ICD-10-PCS; 2018-09-26)
DX: R07.89 Other chest pain (principal); R00.2 Palpitations; I10 Essential (primary) hypertension; E78.5 Hyperlipidemia, unspecified; M54.9 Dorsalgia, unspecified; M25.559 Pain in unspecified hip; M62.838 Other muscle spasm; R20.0 Anesthesia of skin; M54.30 Sciatica, unspecified side; M47.9 Spondylosis, unspecified; M43.9 Deforming dorsopathy, unspecified
CPT/HCPCS: 36415; 71046-TC-FY; 71275-TC; 78452-TC; 80053; 80061; 81003; 82550; 83036; 83721; 83735; 84100; 84484; 85025; 85610; 93005; 93010; 93017; 93306-TC; 96374; 96375; 99285-25; A9502; C1887; G0378; J2785

== ENCOUNTER 2019-02-17 18:18 | Emergency (ER) | payer OTHER ==
[2019-02-17 18:25] VITALS: BP 152/65; PULSE 61; TEMP 97.6; BMI 28.7
--- NOTE | 2019-02-17 19:21 | PDOC ---
History of Present Illness - General Chief Complaint: Edema Stated Complaint: LEFT LEG SWOLLEN Time Seen by Provider: 02/17/19 19:14 - History of Present Illness Initial Comments: 02/17/19 20:23 The patient is a 69 year old female with a history of HTN, HLD, Tachycardia who presents for evaluation of redness and swelling to the left leg. The patient reports that she slipped on a step 6 days ago and sustained a wound to her left torres. She noted worsening redness, swelling, and pain to the left lower extremity 2 days ago prompting her presentation to the ED for further evaluation. She otherwise denies fevers, chills, SOB, chest pain, nausea, vomiting, abdominal pain, numbness, tingling, weakness, or changes with urination or bowel movements. Past History - Past Medical History Allergies/Adverse Reactions: Allergies Allergy/AdvReac Type Severity Reaction Status Date / Time No Known Drug Allergies Allergy Verified 02/17/19 18:25 NUTS Allergy "FEELS Uncoded 02/17/19 18:25 LIKE GUMS & TONGUE SWELLING" Home Medications: Ambulatory Orders Amlodipine Besylate [Norvasc -] 5 mg PO DAILY 01/18/15 Duloxetine HCl [Cymbalta -] 60 mg PO DAILY 01/19/15 Metoprolol Succinate [Toprol XL -] 50 mg PO DAILY #0 tab.sr.24h 01/20/15 Ascorbic Acid [Vitamin C -] 1,000 mg PO DAILY 06/18/18 Cholecalciferol (Vitamin D3) [Vitamin D3] 2,000 unit PO DAILY 06/18/18 Estradiol 1 mg PO DAILY 06/18/18 Multivitamin with Iron [Multivitamins with Iron] 1 each PO DAILY 06/18/18 Amox-Tr/K Cl [Augmentin - 875Mg Tablet] 1 tab PO BID #14 tablet 02/17/19 Anemia: Yes (H/O "LONG AGO") Cardiac Disorders: Yes (TACHYCARDIA) COPD: No GI Disorders: Yes (SBO,COLON POLYPS) HTN: Yes Hypercholesterolemia: Yes Liver Disease: No - Surgical History Orthopedic Surgery: Yes (BILATERAL KNEE SURGERY,RIGHT ROTATOR CUFF REPAIR) - Immunization History Immunization Up to Date: Yes - Suicide/Smoking/Psychosocial Hx Smoking History: Never smoked Have you smoked in the past 12 months: No Number of Cigarettes Smoked Daily: 0 Hx Alcohol Use: Yes (social) Drug/Substance Use Hx: No Substance Use Type: None Hx Substance Use Treatment: No Review of Systems - Review of Systems Comments:: 02/17/19 20:25 Constitutional: No fevers, chills, fatigue, malaise HEENT: No Rhinorrhea, nasal congestion, visual changes Cardiovascular: No chest pain, syncope, palpitations, lightheadedness Respiratory: No Cough, SOB, Hemoptysis, Gastrointestinal: No Abdominal pain, Nausea, Vomiting, Constipation, Diarrhea, Melena Genitourinary: No Dysuria, Frequency, Urgency, Hesitancy, Hematuria, Flank pain Musculoskeletal: Pain to the left lower extremity. No Myalgia, arthralgia Skin: Redness and swelling to the left lower extremity. No itching, bruising, pallor Neurologic: No Headache, Dizziness, Numbness, Weakness, or Tingling Psychiatric: No Hallucinations. No SI or HI *Physical Exam - Vital Signs Last Vital Signs Temp Pulse Resp BP Pulse Ox 97.6 F 61 18 152/65 99 02/17/19 18:21 02/17/19 18:21 02/17/19 18:21 02/17/19 18:21 02/17/19 18:21 - Physical Exam Comments: 02/17/19 20:26 General Appearance: Nourished. No Apparent Distress HEENT: No Pharyngeal Erythema, Tonsillar Exudate, Tonsillar Erythema Neck: No Cervical Lymphadenopathy Respiratory/Chest: Lungs Clear, Normal Breath Sounds. No Crackles, Rales, Rhonchi, Wheezing Cardiovascular: Regular Rhythm, Regular Rate. No Murmur, Gallops, Rubs Gastrointestinal/Abdominal: Normal Bowel Sounds, Soft. No Guarding, Rebound, Tenderness Musculoskeletal: No CVA Tenderness Extremity: Healing wound to the left torres with crusting and surrounding erythema and warmth. 2+ edema extending from the left torres to the left foot. 2 + dp pulses bilaterally. Normal Capillary Refill Integumentary: Normal Color, Dry, Warm Neurologic: Fully Oriented, Alert, Normal Mood/Affect, Normal Response, ED Treatment Course - LABORATORY CBC & Chemistry Diagram: 02/17/19 20:43 02/17/19 20:43 Medical Decision Making - Medical Decision Making 02/17/19 20:27 The patient is a 69 year old female with a history of HTN, HLD, Tachycardia who presents for evaluation of redness and swelling to the left leg. Differential includes but is not limited to: Cellulitis, DVT, Dependent Edema, Infectious, Metabolic Derangement. Given the patient's history and physical exam, it is likely the patient's symptoms are due to a cellulitis. However, we will obtain a cbc, cmp, bnp, DVT US to evaluate further. We will treat with unasyn and continue to monitor and reassess while here in the ED. 02/17/19 22:51 CBC, cmp, bnp are unremarkable. DVT US is negative for DVT as preliminarily read by our employee relation manager radiologist. We are comfortable discharging the patient home in stable condition on Augmentin. Patient made aware of impression and plan , return precautions discussed including but not limited to worsening pain or symptoms, fevers, or signs of infection, chest pain, respiratory distress, inability to tolerate oral intake, dehydration, syncope, or neurologic changes. The patient is to follow up with PMD as recommended within 1 week, follow up information provided and the patient will call for an appointment. The patient is to take medications as instructed for duration of time and continue with supportive care, avoid triggers and precipitants. Patient is safe for outpatient follow-up. *DC/Admit/Observation/Transfer Diagnosis at time of Disposition: Cellulitis Qualifiers: Site of cellulitis: extremity Site of cellulitis of extremity: lower extremity Laterality: left Qualified Code(s): L03.116 - Cellulitis of left lower limb - Discharge Dispostion Disposition: HOME Condition at time of disposition: Stable - Prescriptions Prescriptions: Amox-Tr/K Cl [Augmentin - 875Mg Tablet] 1 tab PO BID #14 tablet - Referrals Referrals: Ledy Liao MD [Primary Care Provider] - - Patient Instructions Printed Discharge Instructions: DI for Cellulitis -- Adult Additional Instructions: 1) Please follow-up with your primary care doctor in the next 2-3 days. Please call tomorrow to schedule a follow up appointment. If you cannot follow up with your doctor within 1 week please return to the Emergency Department for any urgent issues. 2) You were given a copy of the tests performed today. Please bring the results with you and review them with your primary care doctor. Your laboratory / imaging results were normal here in the ER. 3) If you have any worsening of symptoms or any other concerns please return to the ER immediately. Return if worsening symptoms including fevers, headache, vomiting, visual or hearing disturbances, abdominal pain, chest pain, shortness of breath, syncope, dehydration, inability to take things by mouth/vomiting, altered mental status, or worsening concerning symptoms. 4) Please continue taking your home medications as directed. Your medications on discharge include Augmentin that you should take twice a day for 7 days. Side effects may include upset stomach, abdominal pain, vomiting, or diarrhea. Do not drink alcohol with your medications. - Post Discharge Activity
--- NOTE | 2019-02-17 20:48 | PDOC ---
Documentation entered by Michoacano Kang SCRIBE, acting as scribe for Ben Mcdaniel MD. Ben Mcdaniel MD: This documentation has been prepared by the taniaeJorge Luis Aiswarya, SCRIBE, under my direction and personally reviewed by me in its entirety. I confirm that the documentation accurately reflects all work, treatment, procedures, and medical decision making performed by me. Attending Attestation - Resident Resident Name: MelyssaArtie - ED Attending Attestation I have performed the following: I have examined & evaluated the patient, The case was reviewed & discussed with the resident, I agree w/resident's findings & plan, Exceptions are as noted - HPI HPI: 02/17/19 20:34 69-year-old female with past medical history of hypertension, hyperlipidemia presents with left torres skin injury 6 days ago. Patient actually bumped into her left torres sustaining a scrape. Since then, she has noticed an increasing erythema of the left torres but no fevers or chills. She noticed some mild edema. Denies any Pain. Patient is ambulatory without any difficulty. Came to the ER for an evaluation. - Physicial Exam PE: 02/17/19 20:38 GENERAL: Awake, alert, and fully oriented, in no acute distress HEAD: No signs of trauma EYES: EOMI, sclera anicteric, conjunctiva clear ENT: Auricles normal inspection, hearing grossly normal, nares patent, NECK: Normal ROM, supple, LUNGS: Breath sounds equal, clear to auscultation bilaterally. No wheezes, and no crackles HEART: Regular rate and rhythm, normal S1 and S2, no murmurs, rubs or gallops ABDOMEN: Soft, nontender, normoactive bowel sounds. No guarding, no rebound. No masses EXTREMITIES: Normal range of motion, No clubbing or cyanosis. No cords, erythema, or tenderness. 2+ DP pulse b/l. Mild edemaLef NEUROLOGICAL: Cranial nerves II through XII grossly intact. Normal speech, SKIN: Left torres with healing wound abrasions, but with approximately 8x6 cm erythema, but no induration or fluctuance. no calf tenderness. - Medical Decision Making 02/17/19 20:46 Vital Signs Temp Pulse Resp BP Pulse Ox 97.6 F 61 18 152/65 99 02/17/19 18:21 02/17/19 18:21 02/17/19 18:21 02/17/19 18:21 02/17/19 18:21 The patient has cellulitis of the left lower extremity but is nontoxic appearing. Will obtain LLE duplex though my suspicion is unlikely to be DVT. Edema likely 2 /2 infection. Will obtain blood work. If CBC does not demonstrate severe leukocytosis, bandemia, pt will be eligible for outpatient oral antibiotics. The erythema appears to be most likely strep, so will d/c with augmentin BID with follow up with PMD. 02/17/19 22:23 CBC, BMP 02/17/19 20:43 02/17/19 20:43 CMP Sodium 140 mmol/L (136-145) 02/17/19 20:43 Potassium 3.4 mmol/L (3.5-5.1) L 02/17/19 20:43 Chloride 106 mmol/L (98-107) 02/17/19 20:43 Carbon Dioxide 27 mmol/L (21-32) 02/17/19 20:43 Anion Gap 6 MMOL/L (8-16) L 02/17/19 20:43 BUN 9.0 mg/dL (7-18) 02/17/19 20:43 Creatinine 0.6 mg/dL (0.55-1.3) 02/17/19 20:43 Est GFR (CKD-EPI)AfAm 107.79 02/17/19 20:43 Est GFR (CKD-EPI)NonAf 93.00 02/17/19 20:43 Random Glucose 95 mg/dL (74-106) 02/17/19 20:43 Calcium 9.1 mg/dL (8.5-10.1) 02/17/19 20:43 Total Bilirubin 0.4 mg/dL (0.2-1) 02/17/19 20:43 AST 17 U/L (15-37) 02/17/19 20:43 ALT 26 U/L (13-61) 02/17/19 20:43 Alkaline Phosphatase 86 U/L (45-117) 02/17/19 20:43 B-Natriuretic Peptide 58.5 pg/ml (5-125) 02/17/19 20:43 Total Protein 7.9 g/dl (6.4-8.2) 02/17/19 20:43 Albumin 4.1 g/dl (3.4-5.0) 02/17/19 20:43 02/17/19 22:38 Ultrasound reviewed. No lower extremity DVT.
[2019-02-17 21:09] LABS: EOS % 4.1 % (0-4.5); HEMATOCRIT 39.9 % (32.4-45.2); HEMOGLOBIN 13.1 GM/dL (10.7-15.3); LYMPH % 42.2 % (8-40); MCHC 32.9 g/dl (32.0-36.0); MEAN CELL VOLUME 94.2 fl (80-96); MEAN PLT VOLUME 8.9 fl (7.5-11.1); MONO % 9.4 % (3.8-10.2); NEUT % 43.3 % (42.8-82.8); RBC 4.24 M/mm3 (3.60-5.2); RDW 14.3 % (11.6-15.6); WHITE BLOOD COUNT 6.1 K/mm3 (4.0-10.0)
[2019-02-17 21:25] LABS: PLATELET COUNT 276 K/MM3 (134-434)
[2019-02-17] MEDS ORDERED: AMPICILLIN NA/SULBACTAM NA 3 GM in SODIUM CHLORIDE 100 ML IVPB ONE (21:29)
[2019-02-17 22:12] LABS: ALBUMIN 4.1 g/dl (3.4-5.0); BILIRUBIN,TOTAL 0.4 mg/dL (0.2-1); CALCIUM 9.1 mg/dL (8.5-10.1); CREATININE 0.6 mg/dL (0.55-1.3); POTASSIUM 3.4 mmol/L (3.5-5.1); TOT PROT 7.9 g/dl (6.4-8.2)
== END 2019-02-17 23:15 | disposition home or self-care (01) ==
LOC: JER 18:18
DX: L03.116 Cellulitis of left lower limb (principal); I10 Essential (primary) hypertension; E78.5 Hyperlipidemia, unspecified
CPT/HCPCS: 36415; 80053; 83880; 85025; 93971-TC; 96365; 99283-25

== ENCOUNTER 2019-06-17 16:07 | Emergency (ER) | payer OTHER ==
--- NOTE | 2019-06-17 16:22 | PDOC ---
Rapid Medical Evaluation Time Seen by Provider: 06/17/19 16:20 Medical Evaluation: Allergies Allergy/AdvReac Type Severity Reaction Status Date / Time No Known Drug Allergies Allergy Verified 02/17/19 18:25 NUTS Allergy "FEELS Uncoded 02/17/19 18:25 LIKE GUMS & TONGUE SWELLING" 06/17/19 16:21 HPI: lower back pain without radiculopathy PE: No gross deficits ORDERS: Nothing Discharge Disposition - Diagnosis Back pain - Referrals - Patient Instructions - Post Discharge Activity
[2019-06-17 16:26] VITALS: BP 144/60; PULSE 63; TEMP 98.2; BMI 29.1
--- NOTE | 2019-06-17 17:15 | PDOC ---
History of Present Illness - General Chief Complaint: Back Pain Stated Complaint: Back pain Time Seen by Provider: 06/17/19 16:20 History Source: Patient - History of Present Illness Initial Comments: 06/17/19 17:48 Chief complaint: Back pain Patient is a 69-year-old female with hypertension who has chronic back issues, but does not come to the ER often. Patient states it started on the right side as right sciatica on Monday, then moved to the left side. There is no numbness , no incontinence, no saddle anesthesia. Patient is able to ambulate but is painful. Patient is been taking her Motrin at home but it does not seem to be working. She also tried Valium which did not help. GENERAL/CONSTITUTIONAL: No fever, weakness. dizziness HEAD, EYES, EARS, NOSE AND THROAT: No change in vision. No ear pain or discharge. No sore throat. CARDIOVASCULAR: No chest pain RESPIRATORY: No shortness of breath or cough GASTROINTESTINAL: No pain, nausea, vomiting, diarrhea or constipation GENITOURINARY: No dysuria MUSCULOSKELETAL: No neck, +back pain SKIN: No rash NEUROLOGIC: No headache, vertigo, loss of consciousness, or loss of sensation. GENERAL: The patient is awake, alert, and fully oriented, in no acute distress. HEAD: Normal with no signs of trauma. EYES: Pupils equal, round and reactive to light, sclera anicteric, conjunctiva clear. ENT: pharynx: no erythema, no exudate, uvula midline NECK: supple CHEST: clear, nontender, rr ABD: soft, nontender BACK: Mild sacral/pelvic tenderness EXTREMITIES: Normal range of motion, no edema. Good strength, neurovascular intact NEUROLOGICAL: Normal speech, normal gait. SKIN: Warm, Dry Past History - Past Medical History Allergies/Adverse Reactions: Allergies Allergy/AdvReac Type Severity Reaction Status Date / Time No Known Drug Allergies Allergy Verified 06/17/19 16:21 NUTS Allergy "FEELS Uncoded 06/17/19 16:21 LIKE GUMS & TONGUE SWELLING" Home Medications: Ambulatory Orders Amlodipine Besylate [Norvasc -] 5 mg PO DAILY 01/18/15 Duloxetine HCl [Cymbalta -] 60 mg PO DAILY 01/19/15 Metoprolol Succinate [Toprol XL -] 50 mg PO DAILY #0 tab.sr.24h 06/02/15 Ascorbic Acid [Vitamin C -] 1,000 mg PO DAILY 06/18/18 Cholecalciferol (Vitamin D3) [Vitamin D3] 2,000 unit PO DAILY 06/18/18 Estradiol 1 mg PO DAILY 06/18/18 Multivitamin with Iron [Multivitamins with Iron] 1 each PO DAILY 06/18/18 Amox-Tr/K Cl [Augmentin - 875Mg Tablet] 1 tab PO BID #14 tablet 02/17/19 Amoxicillin/Potassium Clav [Augmentin 875-125 Tablet] 1 each PO BID 7 Days #14 tablet 02/18/19 Ibuprofen 800 mg PO TID #30 tablet 06/17/19 Methylprednisolone [Medrol Dose Dick] 4 mg PO ASDIR #21 tablet 06/17/19 Oxycodone HCl/Acetaminophen [Percocet 5-325 mg Tablet] 1 tab PO Q4H PRN #20 tablet MDD 6 06/17/19 Anemia: Yes (H/O "LONG AGO") Cardiac Disorders: Yes (TACHYCARDIA) COPD: No GI Disorders: Yes (SBO,COLON POLYPS) HTN: Yes Hypercholesterolemia: Yes Liver Disease: No - Surgical History Orthopedic Surgery: Yes (BILATERAL KNEE SURGERY,RIGHT ROTATOR CUFF REPAIR) - Immunization History Immunization Up to Date: Yes - Psycho Social/Smoking Cessation Hx Smoking History: Never smoked Have you smoked in the past 12 months: No Number of Cigarettes Smoked Daily: 0 Hx Alcohol Use: No Drug/Substance Use Hx: No Substance Use Type: None Hx Substance Use Treatment: No *Physical Exam - Vital Signs Last Vital Signs Temp Pulse Resp BP Pulse Ox 98.2 F 63 16 144/60 99 06/17/19 16:21 06/17/19 16:21 06/17/19 16:21 06/17/19 16:21 06/17/19 16:21 Medical Decision Making - Medical Decision Making 06/17/19 18:38 69-year-old female with hypertension, history of sciatica in the past with degenerative back disease documented in the EMR from several years ago on a CT scan. Patient denies any numbness, saddle anesthesia or incontinence. Patient has taken her Motrin 800 at home and Valium but is not helping. Patient does not need any imaging, patient is ambulatory. Patient will get Toradol, Percocet , be discharged home with Medrol Dosepak, Motrin and Percocet, she will follow- up with her doctor. Patient feels much better upon discharge, able to ambulate better. Discussed issues, findings, results, applicable medications and treatments and follow-up. All these were understood and all questions were answered Discharge - Discharge Information Problems reviewed: Yes Clinical Impression/Diagnosis: Back pain Qualifiers: Back pain location: low back pain Chronicity: unspecified Back pain laterality : unspecified Sciatica presence: with sciatica Sciatica laterality: sciatica laterality unspecified Qualified Code(s): M54.40 - Lumbago with sciatica, unspecified side Condition: Stable Disposition: HOME - Admission No - Additional Discharge Information Prescriptions: Ibuprofen 800 mg PO TID #30 tablet Methylprednisolone [Medrol Dose Dick] 4 mg PO ASDIR #21 tablet Oxycodone HCl/Acetaminophen [Percocet 5-325 mg Tablet] 1 tab PO Q4H PRN #20 tablet MDD 6 PRN Reason: Pain Prescription Drug Monitoring Program (I-STOP) results: I-STOP not reviewed - Follow up/Referral Referrals: Ledy Liao MD [Primary Care Provider] - - Patient Discharge Instructions Patient Printed Discharge Instructions: Managing Chronic Low Back Pain Additional Instructions: No heavy lifting or bending Apply ice to the area 20 minutes every 2 hours for the next 2 days Take Medrol Dosepak as directed Continue taking Motrin 800 mg every 6 hours for pain. If still in pain you can also take Percocet one to 2 tablets every 4 hours. Return to the nearest ER if numbness, weakness, severe pain, problems with urinating or having bowel movements. Call orthopedist today for an appointment for further evaluation - Post Discharge Activity
[2019-06-17] MEDS ORDERED: KETOROLAC TROMETHAMINE 30 MG/1 ML VIAL IM ONE (17:22)
[2019-06-17] MEDS ORDERED: KETOROLAC TROMETHAMINE 30 MG/1 ML VIAL ONE (17:28)
== END 2019-06-17 18:05 | disposition home or self-care (01) ==
LOC: JERFT 16:07
PROC: 3E0233Z Introduction of Anti-inflammatory into Muscle, Percutaneous Approach (ICD-10-PCS; principal; 2019-06-17)
DX: M54.40 Lumbago with sciatica, unspecified side (principal); I10 Essential (primary) hypertension; E78.00 Pure hypercholesterolemia, unspecified; R00.0 Tachycardia, unspecified; Z86.2 Personal history of diseases of the blood and blood-forming organs and certain disorders involving the immune mechanism; Z87.19 Personal history of other diseases of the digestive system; Z91.018 Allergy to other foods
CPT/HCPCS: 96372; 99281-25

== ENCOUNTER 2021-04-04 18:15 | Emergency (ER) | payer OTHER ==
[2021-04-04 18:36] VITALS: BP 116/79; PULSE 67; TEMP 98.3; BMI 28.6
== END 2021-04-04 20:20 | disposition home or self-care (01) ==
LOC: JER 18:15
DX: Z20.822 Contact with and (suspected) exposure to COVID-19 (principal)
CPT/HCPCS: 99283-25; C9803; U0003; U0005

== ENCOUNTER 2021-09-04 19:32 | Observation (INO) | payer OTHER ==
[2021-09-04] MEDS ORDERED: ACETAMINOPHEN 1000 MG/100 ML BAG IVPB ONE ×2 (20:16→20:58)
[2021-09-04] MEDS ORDERED: LIDOCAINE 5% TOPICAL PATCH TP ONE (20:17)
[2021-09-04] MEDS ORDERED: KETOROLAC TROMETHAMINE 30 MG/1 ML VIAL IM ONE (20:35)
[2021-09-04] MEDS ORDERED: ACETAMINOPHEN INJECTION 100 ML IVPB ONE (20:36)
[2021-09-04] MEDS ORDERED: LIDOCAINE 5% TOPICAL PATCH ONE (20:36)
[2021-09-04] MEDS ORDERED: KETOROLAC TROMETHAMINE 30 MG/1 ML VIAL ONE (21:02)
[2021-09-04] MEDS ORDERED: morphine CARPU-JECT 4 MG/1 ML DISP.SYRIN IVPUSH ONE (21:51)
[2021-09-04] MEDS ORDERED: morphine SULFATE 4 MG/ML VIAL ONE (22:01)
[2021-09-04] MEDS: LIDOCAINE PATCH REMOVAL MC SCH (22:09)
[2021-09-04 23:06] LABS: BASO % 0.9 % (0-2.0); EOS % 0.4 % (0-4.5); HEMATOCRIT 38.3 % (32.4-45.2); HEMOGLOBIN 12.9 GM/dL (10.7-15.3); LYMPH % 33.2 % (8-40); MCH 31.4 pg (25.7-33.7); MCHC 33.7 g/dl (32.0-36.0); MEAN CELL VOLUME 93.4 fl (80-96); MEAN PLT VOLUME 8.1 fl (7.5-11.1); NEUT % 56.5 % (42.8-82.8); PLATELET COUNT 256 10^3/uL (134-434); RDW 14.5 % (11.6-15.6); WHITE BLOOD COUNT 8.2 K/mm3 (4.0-10.0)
[2021-09-04 23:26] LABS: ALBUMIN 3.7 g/dl (3.4-5.0); BLOOD UREA NITROGEN 9.7 mg/dL (7-18)
[2021-09-04 23:30] LABS: CREATININE 0.6 mg/dL (0.55-1.3)
[2021-09-04 23:31] LABS: BILIRUBIN,TOTAL 0.4 mg/dL (0.2-1)
[2021-09-04 23:32] LABS: TOT PROT 7.2 g/dl (6.4-8.2)
[2021-09-05] MEDS: oxyCODONE HCL 5 MG TABLET PO PRN ×3 (03:31→18:29)
[2021-09-05 03:48] VITALS: BMI 28.8
[2021-09-05 10:06] LABS: BASO % 0.8 % (0-2.0); EOS % 1.3 % (0-4.5); HEMOGLOBIN 12.8 GM/dL (10.7-15.3); LYMPH % 36.8 % (8-40); MCH 30.9 pg (25.7-33.7); MCHC 31.9 g/dl (32.0-36.0); MEAN CELL VOLUME 96.9 fl (80-96); MEAN PLT VOLUME 8.8 fl (7.5-11.1); MONO % 11.2 % (3.8-10.2); NEUT % 49.9 % (42.8-82.8); PLATELET COUNT 278 10^3/uL (134-434); RBC 4.12 M/mm3 (3.60-5.2); RDW 14.5 % (11.6-15.6)
[2021-09-05 10:23] LABS: BLOOD UREA NITROGEN 16.6 mg/dL (7-18); CALCIUM 9.1 mg/dL (8.5-10.1)
[2021-09-05 10:27] LABS: CREATININE 0.8 mg/dL (0.55-1.3)
[2021-09-05] MEDS ORDERED: IBUPROFEN 400 MG TABLET (FP) PO PRN ×2 (11:51→14:13)
[2021-09-05] MEDS: amLODIPine BESYLATE 5 MG TABLET (FP) PO SCH (12:17)
[2021-09-05] MEDS: ACETAMINOPHEN 325 MG TABLET (FP) PO PRN ×2 (12:17→18:28)
[2021-09-05] MEDS: DULoxetine HCL 30 MG CAPSULE.DR PO SCH (15:07)
[2021-09-05] MEDS: LIDOCAINE PATCH REMOVAL MC SCH (21:58)
[2021-09-06] MEDS: oxyCODONE HCL 5 MG TABLET PO PRN (04:07)
[2021-09-06] MEDS: ACETAMINOPHEN 325 MG TABLET (FP) PO PRN (06:55)
[2021-09-06] MEDS ORDERED: diazePAM 5 MG TABLET PO PRN (08:50)
[2021-09-06] MEDS: traMADol HCL 50 MG TABLET PO PRN ×2 (09:56→16:18)
[2021-09-06] MEDS: amLODIPine BESYLATE 5 MG TABLET (FP) PO SCH (09:57)
[2021-09-06] MEDS ORDERED: CHOLECALCIFEROL (VIT D3) 1,000 UNIT (25 MCG) TABLET PO SCH (10:00)
[2021-09-06] MEDS ORDERED: ESTRADIOL 0.5 MG PO SCH (10:00)
[2021-09-06] MEDS: DULoxetine HCL 30 MG CAPSULE.DR PO SCH (12:13)
[2021-09-06 15:20] VITALS: BP 135/66; PULSE 73; TEMP 97.9
== END 2021-09-06 18:00 | disposition home or self-care (01) ==
LOC: JER 19:32 → JERBED 09-05 00:40 → J5S 09-05 03:27
PROVIDERS: ADMIT Internal Medicine; ATTEND Internal Medicine
PROC: 3E033NZ Introduction of Analgesics, Hypnotics, Sedatives into Peripheral Vein, Percutaneous Approach (ICD-10-PCS; principal; 2021-09-05)
PROC: 3E0233Z Introduction of Anti-inflammatory into Muscle, Percutaneous Approach (ICD-10-PCS; 2021-09-05)
PROC: 3E033NZ Introduction of Analgesics, Hypnotics, Sedatives into Peripheral Vein, Percutaneous Approach (ICD-10-PCS; 2021-09-05)
DX: M54.30 Sciatica, unspecified side (principal); M54.9 Dorsalgia, unspecified; E78.5 Hyperlipidemia, unspecified; Z20.822 Contact with and (suspected) exposure to COVID-19; I10 Essential (primary) hypertension; Z91.018 Allergy to other foods; K56.609 Unspecified intestinal obstruction, unspecified as to partial versus complete obstruction; F41.9 Anxiety disorder, unspecified; M19.90 Unspecified osteoarthritis, unspecified site; G89.29 Other chronic pain
CPT/HCPCS: 36415; 80048; 80053; 85025; 86850; 86900; 86901; 96372; 96374; 96375; 99285-25; C9803; G0378; J0131; U0003; U0005

== ENCOUNTER 2022-05-01 22:46 | Emergency (ER) | payer OTHER ==
[2022-05-01 22:59] VITALS: BP 137/60; PULSE 85; RESP 18; TEMP 98.2; BMI 27.9
[2022-05-01] MEDS ORDERED: DEXAMETHASONE SOD PHOSPHATE 4 MG/1 ML VIAL IM ONE (23:16)
[2022-05-01] MEDS ORDERED: DEXAMETHASONE SOD PHOSPHATE 10 MG/1 ML VIAL ONE (23:34)
== END 2022-05-02 00:08 | disposition home or self-care (01) ==
LOC: JER 22:46
PROC: 3E023NZ Introduction of Analgesics, Hypnotics, Sedatives into Muscle, Percutaneous Approach (ICD-10-PCS; principal; 2022-05-01)
DX: L29.9 Pruritus, unspecified (principal); W57.XXXA Bitten or stung by nonvenomous insect and other nonvenomous arthropods, initial encounter
CPT/HCPCS: 99283-25

== ENCOUNTER 2022-05-20 06:58 | Emergency (ER) | payer OTHER ==
[2022-05-20 07:11] VITALS: BP 128/76; PULSE 84; RESP 18; TEMP 98.2; BMI 27.8
[2022-05-20] MEDS ORDERED: METHOCARBAMOL 500 MG TABLET PO ONE (08:05)
[2022-05-20] MEDS ORDERED: ACETAMINOPHEN 325 MG TABLET (FP) PO ONE (08:05)
[2022-05-20] MEDS ORDERED: SODIUM CHLORIDE 1,000 ML IV STA (08:05)
[2022-05-20] MEDS ORDERED: METHOCARBAMOL 500 MG TABLET ONE (09:16)
[2022-05-20] MEDS ORDERED: ACETAMINOPHEN 325 MG TABLET (FP) ONE (09:17)
[2022-05-20 09:42] LABS: BASO % 0.9 % (0-2.0); EOS % 3.5 % (0-4.5); HEMATOCRIT 41.4 % (32.4-45.2); HEMOGLOBIN 13.7 GM/dL (10.7-15.3); LYMPH % 28.7 % (8-40); MCH 32.1 pg (25.7-33.7); MCHC 33.1 g/dl (32.0-36.0); MEAN CELL VOLUME 97.2 fl (80-96); MEAN PLT VOLUME 8.8 fl (7.5-11.1); MONO % 9.3 % (3.8-10.2); NEUT % 57.6 % (42.8-82.8); PLATELET COUNT 285 10^3/uL (134-434); RBC 4.26 M/mm3 (3.60-5.2); RDW 14.9 % (11.6-15.6); WHITE BLOOD COUNT 7.4 K/mm3 (4.0-10.0)
[2022-05-20 09:50] LABS: PROTHROMBIN TIME (PATIENT) 11.5 SEC (9.7-13.0)
[2022-05-20 10:04] LABS: CALCIUM 9.7 mg/dL (8.5-10.1)
[2022-05-20 10:05] LABS: ALBUMIN 3.8 g/dl (3.4-5.0); BLOOD UREA NITROGEN 7.7 mg/dL (7-18)
[2022-05-20 10:08] LABS: CREATININE 0.6 mg/dL (0.55-1.3)
[2022-05-20 10:09] LABS: TOT PROT 7.2 g/dl (6.4-8.2)
[2022-05-20 10:36] LABS: PH,URINE 6.5 (5.0-8.0); URINE APPEARANCE CLOUDY; URINE BILIRUBIN NEGATIVE (NEGATIVE); URINE COLOR YELLOW; URINE GLUCOSE (UA) NEGATIVE (NEGATIVE); URINE KETONE NEGATIVE (NEGATIVE); URINE LEUK ESTERASE NEGATIVE (NEGATIVE); URINE NITRITE NEGATIVE (NEGATIVE); URINE PROTEIN NEGATIVE (NEGATIVE)
[2022-05-20] MEDS ORDERED: KETOROLAC TROMETHAMINE 15 MG/ML VIAL IVPUSH ONE (10:45)
[2022-05-20] MEDS ORDERED: KETOROLAC TROMETHAMINE 15 MG/ML VIAL ONE (10:50)
== END 2022-05-20 11:32 | disposition home or self-care (01) ==
LOC: JER 06:58
PROC: 3E0333Z Introduction of Anti-inflammatory into Peripheral Vein, Percutaneous Approach (ICD-10-PCS; principal; 2022-05-20)
PROC: 3E0337Z Introduction of Electrolytic and Water Balance Substance into Peripheral Vein, Percutaneous Approach (ICD-10-PCS; 2022-05-20)
DX: R07.82 Intercostal pain (principal)
CPT/HCPCS: 36415; 71046-TC-FY; 74176-TC; 80053; 81003; 84484; 85025; 85379; 85610; 87086; 87186; 93005; 93010; 99285-25

== ENCOUNTER 2022-07-15 00:59 | Emergency (ER) | payer OTHER ==
[2022-07-15] MEDS ORDERED: MAG HYDROX/AL HYDROX/SIMETH 30 ML UNIT-DOSE CUP PO ONE (01:39)
[2022-07-15] MEDS ORDERED: MAG HYDROX/AL HYDROX/SIMETH 30 ML UNIT-DOSE CUP ONE (02:37)
[2022-07-15 03:55] LABS: CALCIUM 9.3 mg/dL (8.5-10.1)
[2022-07-15 03:56] LABS: ALBUMIN 3.5 g/dl (3.4-5.0)
[2022-07-15 03:59] LABS: CREATININE 0.7 mg/dL (0.55-1.3)
[2022-07-15 04:01] LABS: BILIRUBIN,TOTAL 0.3 mg/dL (0.2-1)
[2022-07-15 04:07] LABS: INR 0.99 (0.83-1.09); PROTHROMBIN TIME (PATIENT) 11.4 SEC (9.7-13.0)
[2022-07-15 04:19] LABS: BASO % 1.1 % (0-2.0); EOS % 2.7 % (0-4.5); HEMATOCRIT 42.5 % (32.4-45.2); HEMOGLOBIN 13.7 GM/dL (10.7-15.3); LYMPH % 53.7 % (8-40); MCH 31.9 pg (25.7-33.7); MCHC 32.2 g/dl (32.0-36.0); MEAN PLT VOLUME 9.2 fl (7.5-11.1); MONO % 8.7 % (3.8-10.2); NEUT % 33.8 % (42.8-82.8); PLATELET COUNT 277 10^3/uL (134-434); RDW 14.8 % (11.6-15.6); WHITE BLOOD COUNT 6.7 K/mm3 (4.0-10.0)
[2022-07-15 04:59] VITALS: PULSE 66; BMI 28.3
[2022-07-15] MEDS ORDERED: ONDANSETRON 4 MG/2 ML VIAL IVPUSH ONE (05:23)
[2022-07-15] MEDS ORDERED: ACETAMINOPHEN 1000 MG/100 ML BAG IVPB ONE (05:23)
[2022-07-15] MEDS ORDERED: ACETAMINOPHEN INJECTION 100 ML IVPB ONE (05:29)
[2022-07-15] MEDS ORDERED: ONDANSETRON 4 MG/2 ML VIAL ONE (05:30)
[2022-07-15 05:48] VITALS: BP 138/67; RESP 18; TEMP 99.1
[2022-07-15 05:59] LABS: BLOOD UREA NITROGEN 8.9 mg/dL (7-18); TOT PROT 6.7 g/dl (6.4-8.2)
[2022-07-15 07:45] LABS: PH,URINE 5.5 (5.0-8.0); URINE APPEARANCE CLEAR; URINE BILIRUBIN NEGATIVE (NEGATIVE); URINE COLOR YELLOW; URINE GLUCOSE (UA) NEGATIVE (NEGATIVE); URINE KETONE TRACE (NEGATIVE); URINE LEUK ESTERASE NEGATIVE (NEGATIVE); URINE NITRITE NEGATIVE (NEGATIVE); URINE PROTEIN NEGATIVE (NEGATIVE)
== END 2022-07-15 09:30 | disposition home or self-care (01) ==
LOC: JER 00:59
PROC: 3E033GC Introduction of Other Therapeutic Substance into Peripheral Vein, Percutaneous Approach (ICD-10-PCS; principal; 2022-07-15)
DX: R10.84 Generalized abdominal pain (principal); R11.0 Nausea
CPT/HCPCS: 36415; 71045-TC-FY; 74177-TC; 80053; 81003; 82550; 84484; 85025; 85610; 87086; 93005; 93010; 99285-25; Q9967